=== PATIENT | female | born 1945 | race Caucasian/White ===

== ENCOUNTER → 2018-01-29 08:37 | Outpatient (CLI) | payer OTHER, SELFPAY ==
[2018-01-29 10:42] LABS: Hemoglobin A1C% w Est Avg Glu 8.5 % (4.0-6.0)
[2018-01-29 11:03] LABS: Aspartate Aminotransferase 27 IU/L (14-36); BUN Creatinine Ratio 21.4 (6-22); Blood Urea Nitrogen 15 mg/dL (7-17); Carbon Dioxide 32 mmol/L (22-32); Chloride 97 mmol/L (98-107); Cholesterol 174 mg/dL (140-199); Estimated Glomerular Filt Rate > 60.0 mL/min (>60); Glucose 170 mg/dL (80-110); HDL Cholesterol 62 mg/dL (40-60); HEMOLYSIS < 15 (0-50); LDL Cholesterol Calculated 92 mg/dL (<100); Potassium 4.2 mmol/L (3.4-5.1); Sodium 139 mmol/L (137-145); Triglycerides 102 mg/dL (35-150)
[2018-01-29 11:30] LABS: Thyroid Stimulating Hormone 6.36 uIU/mL (0.47-4.68)
== END ==
PROVIDERS: Family Provider Internal Medicine; PCP Internal Medicine; Visit Provider Internal Medicine
DX: E11.9 Type 2 diabetes mellitus without complications (principal); E03.9 Hypothyroidism, unspecified; E78.00 Pure hypercholesterolemia, unspecified; I10 Essential (primary) hypertension
CPT/HCPCS: 36415; 80048; 80061; 83036; 84443; 84450

== ENCOUNTER → 2018-05-18 08:25 | Outpatient (CLI) | payer OTHER, SELFPAY ==
--- NOTE | 2018-05-18 08:27 | DI.MG.S_ITS ---
BILATERAL DIGITAL SCREENING MAMMOGRAM 3D/2D WITH CAD: 05/18/2018 CLINICAL: Routine screening. Family history of breast cancer. Comparison is made to exams dated: 05/08/2017 mammogram, 04/21/2016 mammogram, and 04/20/2015 mammogram - [facility]. There are scattered fibroglandular elements in both breasts. Current study was also evaluated with a Computer Aided Detection (CAD) system. No significant masses, calcifications, or other findings are seen in either breast. There has been no significant interval change. IMPRESSION: NEGATIVE There is no mammographic evidence of malignancy. A 1 year screening mammogram is recommended. This exam was interpreted at Station ID: [id number]. NOTE: For mammograms, a report in lay terms will be sent to the patient. Approximately 15% of breast malignancies will not be visualized mammographically. In the management of a palpable breast mass, a negative mammogram must not discourage biopsy of a clinically suspicious lesion. Electronically Signed By: Krishan chou/ton:05/20/2018 08:57:21 letter sent: Normal Exam ACR BI-RADS Category 1: Negative [id number]
== END ==
PROVIDERS: Family Provider Internal Medicine; PCP Internal Medicine; Visit Provider Internal Medicine
DX: Z12.31 Encounter for screening mammogram for malignant neoplasm of breast (principal); Z80.3 Family history of malignant neoplasm of breast
CPT/HCPCS: 77063; 77067

== ENCOUNTER 2018-10-30 07:18 | Day surgery (SDC) | payer OTHER, SELFPAY ==
[2018-10-30] VITALS (9 sets, daily range): BP systolic 95–145; BP diastolic 64–83; PULSE 69–85; RESP 12–20; TEMP 36–36.5; O2SAT 91–98; BMI 26.1
--- NOTE | 2018-10-30 | PATH_ITS ---
[facility] Accession Number: [id number] . 01 Material submitted: . esophagus - ESOPHAGUS BIOPSY . 02 Diagnosis: Esophagus, Biopsy: Ulcerated squamous mucosa. A PAS stain is negative for fungal organisms. Intraepithelial eosinophils are not increased. Negative for dysplasia and malignancy. V/11/01/2018 . 02 Electronically signed: . Tori Thompson MD, Pathologist NPI- [id number] . 01 Gross description: . ESOPHAGUS BIOPSY: Received in formalin is 1 fragment(s) of easley, soft tissue measuring 0.2 x 0.2 x 0.2 cm which is entirely submitted and submitted entirely in 1 cassette(s) /DMC /DMC . 02 Microscopic: . A PAS stain was performed to evaluate for fungal organisms and is negative. The control stain showed appropriate reactivity. . 02 Pathologist provided ICD-10: K20.9 . 02 CPT . 280002, [id number] Performed at: 01 [facility] [address] [facility], [place], [place] [id number] MD Krishan Sow MD Phone: [phone] Performed at: 02 [facility] [address] [place], [place] [id number] MD Tori Thompson MD Phone: [phone]
[2018-10-30] MEDS: fentaNYL 250 MCG/5 ML INJ IV (08:51)
[2018-10-30] MEDS: MIDAZOLAM 5 MG/5 ML VIAL IV (08:52)
--- NOTE | 2018-10-30 10:12 | PM.HP.1 ---
History of Present Illness Date Patient Seen: 10/30/18 Time Patient Seen: 08:29 Chief complaint: [id number] Narrative: Recurrent dysphagia Patient History Medical History (Updated 10/30/18 @ 10:13 by Moisés Trimble MD) Diabetes (Acute) GERD (gastroesophageal reflux disease) (Acute) Hyperlipidemia (Acute) Hypertension (Acute) Osteoarthritis (Acute) Retinal vein occlusion (Acute) Stroke (Acute) Thyroid disease (Acute) Social History household members: spouse Family & Social History Social History: household members spouse Meds Home Medications Medication Instructions Recorded Confirmed Type allopurinol #0 02/02/17 History atorvastatin #0 02/02/17 History glimepiride [Amaryl] #0 02/02/17 History calcium polycarbophil [FiberCon] 1 tab PO QDAYP PRN #0 09/26/17 History Allergies Allergy/AdvReac Type Severity Reaction Status Date / Time No Known Drug Allergies Allergy Verified 10/30/18 07:38 Exam Vital Signs (past 8 hours): - 10/30/18 07:39 10/30/18 09:00 10/30/18 09:05 Temperature 96.8 F L 97.7 F Pulse Rate 72 77 71 Respiratory Rate 15 15 12 Blood Pressure 145/83 H 116/70 108/65 Pulse Oximetry 98 91 95 10/30/18 09:13 10/30/18 09:15 10/30/18 09:19 Temperature 97.2 F L Pulse Rate 69 85 76 Respiratory Rate 12 20 14 Blood Pressure 107/64 95/65 Pulse Oximetry 95 95 94 10/30/18 09:24 10/30/18 09:29 10/30/18 09:35 Temperature 97.3 F L 97.5 F L 97.4 F L Pulse Rate 77 81 72 Respiratory Rate 15 16 16 Blood Pressure 113/75 129/77 134/71 Pulse Oximetry 95 95 96 Oxygen Delivery Method Room Air Oxygen Flow Rate 2 Narrative Exam Narrative: Oropharynx free of lesions Chest clear to auscultation percussion Cardiac exam reveals no S3 or murmur Assessment & Plan Assessment & Plan narrative: Assessment: Recurrent dysphagia with last dilation 2 years ago. Known significant esophagitis in the past now off pantoprazole Plan is to repeat upper endoscopy and probable dilation. Risks, benefits, alternatives have been explained.
--- NOTE | 2018-10-30 10:18 | P.OP.ENDO_ITS ---
Operative Date/Time/Diagnoses Date of procedure: 10/30/18 Time of procedure: 10:15 Pre-op diagnosis: See indication and findings Procedure & Clinicians Study performed: EGD and dilation Same procedure as scheduled: Yes Indications: Recurrent dysphagia Surgeon: Moisés Trimble Procedure Notes Procedure in detail: After informed consent was obtained the patient was placed in left lateral decubitus position. The video upper scope was placed into the oropharynx and with the patient's health swallowed into the esophagus. The esophagus stomach and duodenum were carefully examined. On withdrawal, retroflexed view the GE junction was performed. The scope was removed. The patient tolerated the procedure well. Blood loss none Complications none Findings 1. Grade D esophagitis with a nearly circumferential ulceration at the GE junction. There was mild stenosis here. On withdrawal this was dilated to 51 [address] Savary. Biopsies were taken to rule out neoplasia. 2. 3 cm hiatal hernia/paraesophageal hernia 3. Normal stomach 4. Normal duodenum Patient will need to be back on pantoprazole. With her degree of inflammation if she goes off of proton pump inhibitors there is a near 100% chance of recurrence within 1 year. She will return to see me in 1-2 months.
== END 2018-10-30 10:08 | disposition home or self-care (01) ==
PROVIDERS: Family Provider Internal Medicine; PCP Internal Medicine; Visit Provider Internal Medicine Gastroenterology
PROC: 0DJ08ZZ Inspection of Upper Intestinal Tract, Via Natural or Artificial Opening Endoscopic (ICD-10-PCS; CPT 43235; principal; 2018-10-30 08:30)
DX: K20.9 Esophagitis, unspecified (principal); K22.10 Ulcer of esophagus without bleeding; K44.9 Diaphragmatic hernia without obstruction or gangrene; E11.9 Type 2 diabetes mellitus without complications; E78.5 Hyperlipidemia, unspecified; K21.9 Gastro-esophageal reflux disease without esophagitis; I10 Essential (primary) hypertension; Z79.84 Long term (current) use of oral hypoglycemic drugs
CPT/HCPCS: 43248; 43239; J2250; J3010

== ENCOUNTER → 2018-11-21 10:02 | Outpatient (CLI) | payer OTHER, SELFPAY | PROVIDERS: Family Provider Internal Medicine; PCP Internal Medicine; Visit Provider Internal Medicine | DX: M85.851 Other specified disorders of bone density and structure, right thigh (principal); Z78.0 Asymptomatic menopausal state; E07.9 Disorder of thyroid, unspecified; M06.9 Rheumatoid arthritis, unspecified; E11.9 Type 2 diabetes mellitus without complications | CPT/HCPCS: 77080 ==

== ENCOUNTER 2019-04-09 07:29 | Day surgery (SDC) | payer OTHER, SELFPAY ==
[2019-04-09] VITALS (8 sets, daily range): BP systolic 102–128; BP diastolic 63–77; PULSE 69–80; RESP 11–16; TEMP 36.3–36.7; O2SAT 96–99; BMI 25.7
[2019-04-09] MEDS: SODIUM CHLORIDE 0.9% 1,000 ML 100 ML IV (07:53)
--- NOTE | 2019-04-09 08:29 | PM.HP.1 ---
History of Present Illness History of Present Illness Chief complaint: [id number] Patient History Medical History (Updated 10/30/18 @ 10:13 by Moisés Trimble MD) Diabetes (Acute) GERD (gastroesophageal reflux disease) (Acute) Hyperlipidemia (Acute) Hypertension (Acute) Osteoarthritis (Acute) Retinal vein occlusion (Acute) Stroke (Acute) Thyroid disease (Acute) Family & Social History Social History: household members spouse Meds Home Medications and Allergies Home Medications Medication Instructions Recorded Confirmed Type allopurinol #0 02/02/17 History atorvastatin #0 02/02/17 History glimepiride [Amaryl] #0 02/02/17 History calcium polycarbophil [FiberCon] 1 tab PO QDAYP PRN #0 09/26/17 History Allergies Allergy/AdvReac Type Severity Reaction Status Date / Time No Known Drug Allergies Allergy Verified 10/30/18 07:38 Exam Vital Signs (past 8 hours): - 04/09/19 07:43 Temperature 97.8 F Pulse Rate 80 Respiratory Rate 16 Blood Pressure 128/75 Pulse Oximetry 97 Oxygen Delivery Method Room Air Narrative Exam Narrative: Oropharynx free of lesions Chest clear to auscultation percussion Cardiac exam reveals no Assessment & Plan Assessment & Plan narrative: History of severe esophagitis with stricture that has been dilated. Dysphagia has resolved but now checking to ensure complete healing. Risks, benefits, alternatives have been explained.
--- NOTE | 2019-04-09 08:30 | PM.OP.ENDO ---
Operative Date/Time/Diagnoses Date of procedure: 04/09/19 Time of procedure: 08:31 Pre-op diagnosis: See indication and findings Procedure & Clinicians Indications: Severe esophagitis Surgeon: Moisés Trimble Procedure Notes Procedure in detail: After informed consent was obtained the patient was placed in left lateral decubitus position. The video upper scope was placed into the oropharynx with the patient's health swallowed into the esophagus. The esophagus, stomach, duodenum were carefully examined. On withdrawal, retroflexed view the GE junction was performed. The scope was removed. The patient tolerated the procedure well. Blood loss none Complications none Sedation Total sedation time 3 minutes Versed 3 mg fentanyl 100 micro g IV titration the Findings 1. Completely normal esophagus to 33 cm. No evidence of esophagitis. 2. 4-5 cm hiatal/paraesophageal hernia without evidence of [place] lesions 3. Normal distal stomach 4. Normal duodenal bulb and sweep Patient had gone off Zantac because of inability to get it through pharmacies. She eventually substituted famotidine 40 mg q.h.s. along with her pantoprazole 40 mg q.a.m.. We will discuss tapering medication and/or discussions about anti-reflux surgery.
[2019-04-09] MEDS: fentaNYL 250 MCG/5 ML INJ IV (08:41)
[2019-04-09] MEDS: MIDAZOLAM 5 MG/5 ML VIAL IV (08:41)
== END 2019-04-09 09:50 | disposition home or self-care (01) ==
PROVIDERS: Family Provider Internal Medicine; PCP Internal Medicine; Visit Provider Internal Medicine Gastroenterology
PROC: 0DJ08ZZ Inspection of Upper Intestinal Tract, Via Natural or Artificial Opening Endoscopic (ICD-10-PCS; CPT 43235; principal; 2019-04-09 08:30)
DX: K44.9 Diaphragmatic hernia without obstruction or gangrene (principal); K21.9 Gastro-esophageal reflux disease without esophagitis; E11.9 Type 2 diabetes mellitus without complications; Z79.84 Long term (current) use of oral hypoglycemic drugs; I10 Essential (primary) hypertension; E78.5 Hyperlipidemia, unspecified; Z86.73 Personal history of transient ischemic attack (TIA), and cerebral infarction without residual deficits
CPT/HCPCS: 43235; J2250; J3010

== ENCOUNTER 2019-06-17 14:30 | Outpatient (RCR) | payer OTHER, SELFPAY ==
--- NOTE | 2019-04-17 09:32 | PT.OIE ---
Current Diagnoses Unspecified urinary incontinence (04/15/19) Past Medical History (Last Updated 10/30/18 @ 10:13 by Moisés Trimble MD) Diabetes (Acute) GERD (gastroesophageal reflux disease) (Acute) Hyperlipidemia (Acute) Hypertension (Acute) Osteoarthritis (Acute) Retinal vein occlusion (Acute) Stroke (Acute) Thyroid disease (Acute) Visit Care Team Role Provider Type Vahid Harris MD Attending Provider Physician Family Provider Primary Care Provider Specialty: Internal Medicine Address: [address] [place] [address], [facility] Email: [email or web address] Initial Evaluation PT-OP-A Visit Information Start: 04/15/19 09:46 Freq: Status: Active Protocol: Document 04/15/19 09:45 [facility] (Rec: 04/15/19 10:04 [facility] [id number]) Out-Patient Physical Therapy Visit Information Visit Information Visit Type Initial Evaluation Visit Note . Visit Start Time 09:45 Visit Stop Time 10:30 Total Visit Minutes 45 Visit Number 1 Evaluation Information Evaluation Date 04/15/19 PT-OP-B Current Condition Start: 04/15/19 09:46 Freq: Status: Active Protocol: Document 04/15/19 09:45 [facility] (Rec: 04/15/19 10:04 [facility] [id number]) Current Condition History of Current Condition Onset Date chronic Current Complaints urinary urgency/frequency with leakage History of Current Condition Has been on urgency medication for 3 years. She has stopped taking the urgency medication two months ago. Did also get a prescription for estrogen cream x 2 months ago and feels this may be helping some. C/o urgency from sitting to standing. Feels pelvic pressure worse at the end of the day can feel very heavy, also after after exercise with walking or after the pool. Weaning her self off diet coke since January. Other past medical history includes type II diabetes, hx of left eye occlusions, hernia , and memory loss Future Testing and Treatments Planned . Treatment Goals Patient/Caregiver Goals To Decrease complaints of urinary leakage and decrease frequency and urgency Current Functional Impairments (Reported) Functional Limitations- Other limited with activity due to frequency of urination, wakes up at night to void , leaks with movement from sit-stand, PT-OP-I Pelvic Floor Start: 04/15/19 09:46 Freq: Status: Active Protocol: Document 04/15/19 09:45 [facility] (Rec: 04/16/19 14:21 [facility] [id number]) Pelvic Floor Assessment Urine Pelvic Floor Surgery No Urinary Symptoms Urge Sensation,Incomplete Emptying,Falling Out Feeling/ Heavy Other Urinary Symptoms frequency and urgency Leakage Size Large Leakage Cause Urge Other Leakage Causes . Leaks Per Day 2 per month Voiding Frequency 7-10 xms per day Nocturia 1-2 xms Pads Used In 24 Hours 1 Urine Pad Type Panty Liner Pelvic Clock Pelvic Clock 12-3 Atrophy Pelvic Clock 3-6 Atrophy Pelvic Clock 6-9 Atrophy Pelvic Clock 9-12 Atrophy Contraction Ability Voluntary Contraction Weak Voluntary Relaxation Weak Manual Muscle Testing Left 2 Manual Muscle Testing Right 2 Manual Muscle Testing Anterior 2 Manual Muscle Testing Posterior 2 PT-OP-Q Treatments Start: 04/15/19 09:46 Freq: Status: Active Protocol: Document 04/15/19 09:45 [facility] (Rec: 04/16/19 14:21 [facility] [email or web address]) Therapeutic Exercises Supine Exercises 1 Supine Exercise Name ball squeeze with pelvic floor activation Side bilateral Reps/Minutes x 10 reps 5 second hold and 10 second relaxation PT-OP-T Assessment and Plan Start: 04/15/19 09:46 Freq: Status: Active Protocol: Document 04/15/19 09:45 [facility] (Rec: 04/16/19 14:21 [facility] [email or web address]) Physical Therapy Assessment Rehab Potential Rehabilitation Potential Excellent Evaluation Complexity Number of Personal Factors/Comorbidities 0 Number of Body Systems Impaired 1-2 Clinical Presentation at Evaluation Stable Impairments Impairments Activity Tolerance,Functional Activities,Strength,Tone Goals Three Impairment urinary urgency and leakage with strong urge to go Short Term Goal (STG) Maria Eugenia is educated in the urge deference technique and bladder retraining STG Duration 3-4 weeks Plug And Mold Finisher Goal (LTG) Maria Eugenia is able to increase her time between voiding and has decreased c/o urgency and urinary leakage LTG Duration 8 weeks Two Impairment Decreased endurance of the pelvic floor Short Term Goal (STG) Maria Eugenia is able to sustain a pelvic floor contraction for 10 seconds in supine STG Duration 4 weeks Usp Goal (LTG) Maria Eugenia is able to sustain a pelvic floor contraction for 10 seconds in standing LTG Duration 8 weeks One Impairment pelvic floor weakness Plug And Mold Finisher Goal (LTG) Maria Eugenia demonstrates improved strength of her pelvic floor and is able to raise her strength by one muscle grade to 3/5 MMT or better LTG Duration 8 weeks Progress Towards Goals Progress Comments . Assessment Summary Assessment Maria Eugenia presents to physical therapy today with symptoms of urinary urgency and leakage. She notes that she does not experience leaking with coughing or sneezing but with strong urge. She reports that sometimes her urge will present itself after she has been sitting for a period of time and then she goes to stand. The urge will come on quickly with standing and then she will leak. With examination she is weak in all parts of the levator and she has difficulty sustaining a pelvic floor contraction for longer than a few second hold time. She will benefit from pelvic floor strengthening for endurance and strength, a urge deference and bladder retraining program, and from reviewing irritants to the bladder that can cause bladder spasms and urgency. Physical Therapy Plan Frequency and Duration Frequency of Treatment 1x/Week Duration of Treatment 8 Plan of Care Start Date 04/15/19 Plan of Care End Date 06/10/19 Therapeutic Interventions Therapeutic Interventions Home Exercise Program, Neuromuscular Re-education, Patient/Caregiver Education, Self-Care/Home Management,Soft Tissue Mobilization, Therapeutic Exercises Modalities Biofeedback,Electric Stimulation Next Visit Focus/Plan Next Note Type Treatment Note Next Visit Plan Begin with EMG biofeedback next visit for neuro re- education of the pelvic floor
--- NOTE | 2019-04-22 15:54 | PT.OTN ---
Current Diagnoses Unspecified urinary incontinence (04/22/19) Physical Therapy Treatment Note PT-OP-A Visit Information Start: 04/15/19 09:46 Freq: Status: Active Protocol: Document 04/22/19 15:44 [facility] (Rec: 04/22/19 15:54 [facility] [id number]) Out-Patient Physical Therapy Visit Information Visit Information Visit Type Treatment Note Visit Start Time 14:30 Visit Stop Time 15:15 Total Visit Minutes 45 Visit Number 2 PT-OP-B Current Condition Start: 04/15/19 09:46 Freq: Status: Active Protocol: Document 04/15/19 09:45 [facility] (Rec: 04/15/19 10:04 [facility] [id number]) Current Condition History of Current Condition Onset Date chronic Current Complaints urinary urgency/frequency with leakage History of Current Condition Has been on urgency medication for 3 years. She has stopped taking the urgency medication two months ago. Did also get a prescription for estrogen cream x 2 months ago and feels this may be helping some. C/o urgency from sitting to standing. Feels pelvic pressure worse at the end of the day can feel very heavy, also after after exercise with walking or after the pool. Weaning her self off diet coke since January. Other past medical history includes type II diabetes, hx of left eye occlusions, hernia , and memory loss Future Testing and Treatments Planned . Treatment Goals Patient/Caregiver Goals To Decrease complaints of urinary leakage and decrease frequency and urgency Current Functional Impairments (Reported) Functional Limitations- Other limited with activity due to frequency of urinartion, wakes up at night to void , leaks with movement from sit-stand, PT-OP-C Subjective Start: 04/15/19 09:46 Freq: Status: Active Protocol: Document 04/22/19 15:44 [facility] (Rec: 04/22/19 15:54 [facility] [id number]) OP-PT Subjective Patient Comments Patient Comments pt reports she has been trying her exercises at home and finds it easier to do them in her recliner or standing PT-OP-I Pelvic Floor Start: 04/15/19 09:46 Freq: Status: Active Protocol: Document 04/15/19 09:45 [facility] (Rec: 04/16/19 14:21 [facility] [email or web address]) Pelvic Floor Assessment Urine Pelvic Floor Surgery No Urinary Symptoms Urge Sensation,Incomplete Emptying,Falling Out Feeling/ Heavy Other Urinary Symptoms frequency and urgency Leakage Size Large Leakage Cause Urge Other Leakage Causes . Leaks Per Day 2 per month Voiding Frequency 7-10 xms per day Nocturia 1-2 xms Pads Used In 24 Hours 1 Urine Pad Type Panty Liner Pelvic Clock Pelvic Clock 12-3 Atrophy Pelvic Clock 3-6 Atrophy Pelvic Clock 6-9 Atrophy Pelvic Clock 9-12 Atrophy Contraction Ability Voluntary Contraction Weak Voluntary Relaxation Weak Manual Muscle Testing Left 2 Manual Muscle Testing Right 2 Manual Muscle Testing Anterior 2 Manual Muscle Testing Posterior 2 PT-OP-Q Treatments Start: 04/15/19 09:46 Freq: Status: Active Protocol: Document 04/22/19 15:44 [facility] (Rec: 04/22/19 15:54 [facility] [email or web address]) Therapeutic Exercises Supine Exercises 2 Supine Exercise Name foam roll stretch 1 Supine Exercise Name ball squeeze with pelvic floor activation . Side bilateral Reps/Minutes x 10 reps 5 second hold and 10 second relaxation Neuro Re-Education Treatment Other Activities 1 Details EMG biofeedback with pelvic floor isolation Comments resting tone evaluation, endurance evaluation, long holds x 10 seconds and relax x 10 seconds, quick contractions Self-Care/Home Management Treatment Education Patient Education Home Exercise Program Other Education bladder retraining and urge deference technique PT-OP-T Assessment and Plan Start: 04/15/19 09:46 Freq: Status: Active Protocol: Document 04/22/19 15:44 [facility] (Rec: 04/22/19 15:54 [facility] [id number]) Physical Therapy Assessment Assessment Summary Assessment endurance is difficulty for Maria Eugenia to sustain, she will continue to work on the 5 second hold times with 10 second relaxation. Added in urge deference technique today as well as quick contractions . Foam roll for posture which she tolerated well. Physical Therapy Plan Frequency and Duration Frequency of Treatment 1x/Week Duration of Treatment 8 Plan of Care Start Date 04/15/19 Plan of Care End Date 06/10/19 Next Visit Focus/Plan Next Note Type Treatment Note Next Visit Plan EMG biofeedback, work on diaphragmatic breathing, progress to lateral hip rotation
--- NOTE | 2019-04-29 15:00 | PT.OTN ---
Current Diagnoses Unspecified urinary incontinence (04/29/19) Physical Therapy Treatment Note PT-OP-A Visit Information Start: 04/15/19 09:46 Freq: Status: Active Protocol: Document 04/29/19 14:31 [facility] (Rec: 04/29/19 14:39 [facility] [id number]) Out-Patient Physical Therapy Visit Information Visit Information Visit Type Treatment Note Visit Start Time 14:30 Visit Stop Time 15:15 Total Visit Minutes 45 Visit Number 3 PT-OP-B Current Condition Start: 04/15/19 09:46 Freq: Status: Active Protocol: Document 04/15/19 09:45 [facility] (Rec: 04/15/19 10:04 [facility] [id number]) Current Condition History of Current Condition Onset Date chronic Current Complaints urinary urgency/frequency with leakage History of Current Condition Has been on urgency medication for 3 years. She has stopped taking the urgency medication two months ago. Did also get a prescription for estrogen cream x 2 months ago and feels this may be helping some. C/o urgency from sitting to standing. Feels pelvic pressure worse at the end of the day can feel very heavy, also after after exercise with walking or after the pool. Weaning her self off diet coke since January. Other past medical history includes type II diabetes, hx of left eye occlusions, hernia , and memory loss Future Testing and Treatments Planned . Treatment Goals Patient/Caregiver Goals To Decrease complaints of urinary leakage and decrease frequency and urgency Current Functional Impairments (Reported) Functional Limitations- Other limited with activity due to frequency of urinartion, wakes up at night to void , leaks with movement from sit-stand, PT-OP-C Subjective Start: 04/15/19 09:46 Freq: Status: Active Protocol: Document 04/29/19 14:31 [facility] (Rec: 04/29/19 14:39 [facility] [id number]) OP-PT Subjective Patient Comments Patient Comments pt got a foam roll for home, has been doing the urge deference technique and feel like it really works. One time she had a little drop of leaking and that was it. PT-OP-I Pelvic Floor Start: 04/15/19 09:46 Freq: Status: Active Protocol: Document 04/15/19 09:45 [facility] (Rec: 04/16/19 14:21 [facility] [email or web address]) Pelvic Floor Assessment Urine Pelvic Floor Surgery No Urinary Symptoms Urge Sensation,Incomplete Emptying,Falling Out Feeling/ Heavy Other Urinary Symptoms frequency and urgency Leakage Size Large Leakage Cause Urge Other Leakage Causes . Leaks Per Day 2 per month Voiding Frequency 7-10 xms per day Nocturia 1-2 xms Pads Used In 24 Hours 1 Urine Pad Type Panty Liner Pelvic Clock Pelvic Clock 12-3 Atrophy Pelvic Clock 3-6 Atrophy Pelvic Clock 6-9 Atrophy Pelvic Clock 9-12 Atrophy Contraction Ability Voluntary Contraction Weak Voluntary Relaxation Weak Manual Muscle Testing Left 2 Manual Muscle Testing Right 2 Manual Muscle Testing Anterior 2 Manual Muscle Testing Posterior 2 PT-OP-Q Treatments Start: 04/15/19 09:46 Freq: Status: Active Protocol: Document 04/29/19 14:30 [facility] (Rec: 04/30/19 11:12 [facility] [email or web address]) Therapeutic Exercises Supine Exercises 4 Supine Exercise Name diaphragmatic breathing 3 Supine Exercise Name roll outs with theraband 2 Supine Exercise Name foam roll stretch 1 Supine Exercise Name ball squeeze with pelvic floor activation . Side bilateral Reps/Minutes x 10 reps 5 second hold and 10 second relaxation Neuro Re-Education Treatment Other Activities 1 Details EMG biofeedback with pelvic floor isolation Comments resting tone down to baseline endurance evaluation, long holds x 10 seconds and relax x 10 seconds, quick contractions, templates for eccentric control and coordination PT-OP-T Assessment and Plan Start: 04/15/19 09:46 Freq: Status: Active Protocol: Document 04/29/19 14:30 [facility] (Rec: 04/30/19 11:12 [facility] [email or web address]) Physical Therapy Assessment Assessment Summary Assessment pt had some difficulty with dizzyness and nausea today. This started with foam roll. I positioned her head out of extension as this was her go to position and this helped. She has had a history of positional vertigo in the past Average resting tone is 11.0 uv and max of 29 uv today Physical Therapy Plan Next Visit Focus/Plan Next Note Type Treatment Note Next Visit Plan continue to progress pelvic floor strength and resting tone, reassess pts dizzyness symptoms next visit
--- NOTE | 2019-05-06 18:22 | PT.OTN ---
Current Diagnoses Unspecified urinary incontinence (05/06/19) Physical Therapy Treatment Note PT-OP-A Visit Information Start: 04/15/19 09:46 Freq: Status: Active Protocol: Document 05/06/19 18:17 [facility] (Rec: 05/06/19 18:21 [facility] [id number]) Out-Patient Physical Therapy Visit Information Visit Information Visit Type Treatment Note Visit Start Time 14:30 Visit Stop Time 15:15 Total Visit Minutes 45 Visit Number 4 PT-OP-B Current Condition Start: 04/15/19 09:46 Freq: Status: Active Protocol: Document 04/15/19 09:45 [facility] (Rec: 04/15/19 10:04 [facility] [id number]) Current Condition History of Current Condition Onset Date chronic Current Complaints urinary urgency/frequency with leakage History of Current Condition Has been on urgency medication for 3 years. She has stopped taking the urgency medication two months ago. Did also get a prescription for estrogen cream x 2 months ago and feels this may be helping some. C/o urgency from sitting to standing. Feels pelvic pressure worse at the end of the day can feel very heavy, also after after exercise with walking or after the pool. Weaning her self off diet coke since January. Other past medical history includes type II diabetes, hx of left eye occlusions, hernia , and memory loss Future Testing and Treatments Planned . Treatment Goals Patient/Caregiver Goals To Decrease complaints of urinary leakage and decrease frequency and urgency Current Functional Impairments (Reported) Functional Limitations- Other limited with activity due to frequency of urinartion, wakes up at night to void , leaks with movement from sit-stand, PT-OP-C Subjective Start: 04/15/19 09:46 Freq: Status: Active Protocol: Document 05/06/19 18:17 [facility] (Rec: 05/06/19 18:21 [facility] [id number]) OP-PT Subjective Patient Comments Patient Comments pt reports the urge deference technique is helping. She has not used the foam roll as she has been continuing to experience vertigo symptoms PT-OP-I Pelvic Floor Start: 04/15/19 09:46 Freq: Status: Active Protocol: Document 04/15/19 09:45 [facility] (Rec: 04/16/19 14:21 [facility] [id number]) Pelvic Floor Assessment Urine Pelvic Floor Surgery No Urinary Symptoms Urge Sensation,Incomplete Emptying,Falling Out Feeling/ Heavy Other Urinary Symptoms frequency and urgency Leakage Size Large Leakage Cause Urge Other Leakage Causes . Leaks Per Day 2 per month Voiding Frequency 7-10 xms per day Nocturia 1-2 xms Pads Used In 24 Hours 1 Urine Pad Type Panty Liner Pelvic Clock Pelvic Clock 12-3 Atrophy Pelvic Clock 3-6 Atrophy Pelvic Clock 6-9 Atrophy Pelvic Clock 9-12 Atrophy Contraction Ability Voluntary Contraction Weak Voluntary Relaxation Weak Manual Muscle Testing Left 2 Manual Muscle Testing Right 2 Manual Muscle Testing Anterior 2 Manual Muscle Testing Posterior 2 PT-OP-Q Treatments Start: 04/15/19 09:46 Freq: Status: Active Protocol: Document 05/06/19 18:17 [facility] (Rec: 05/06/19 18:21 [facility] [email or web address]) Therapeutic Exercises Supine Exercises 4 Supine Exercise Name diaphragmatic breathing 3 Supine Exercise Name roll outs with theraband 2 Supine Exercise Name foam roll stretch 1 Supine Exercise Name ball squeeze with pelvic floor activation . Side bilateral Reps/Minutes x 10 reps 5 second hold and 10 second relaxation Other Exercises 1 Other Exercise Name sit-stand with pelvic floor facilitation Reps/Minutes x 10 reps Neuro Re-Education Treatment Other Activities 1 Details EMG biofeedback with pelvic floor isolation Comments resting tone down to baseline endurance evaluation, long holds x 10 seconds and relax x 10 seconds, quick contractions, templates for eccentric control and coordination PT-OP-T Assessment and Plan Start: 04/15/19 09:46 Freq: Status: Active Protocol: Document 05/06/19 18:17 [facility] (Rec: 05/06/19 18:21 [facility] [id number]) Physical Therapy Assessment Assessment Summary Assessment pt did not have as much strength today. She reports getting the flu shot last week and has felt a little off this week. Worked on sit- stand with pelvic floor recruitment Physical Therapy Plan Frequency and Duration Frequency of Treatment 1x/Week Duration of Treatment 8 Plan of Care Start Date 04/15/19 Plan of Care End Date 06/10/19 Therapeutic Interventions Therapeutic Interventions Home Exercise Program, Neuromuscular Re-education, Patient/Caregiver Education, Self-Care/Home Management,Soft Tissue Mobilization, Therapeutic Exercises Modalities Biofeedback,Electric Stimulation Next Visit Focus/Plan Next Note Type Treatment Note Next Visit Plan pt will be gone x 3 weeks out of town. Review all exercises next visit.
--- NOTE | 2019-05-27 14:30 | PT.OTN ---
Current Diagnoses Unspecified urinary incontinence (05/27/19) Physical Therapy Treatment Note PT-OP-A Visit Information Start: 04/15/19 09:46 Freq: Status: Active Protocol: Document 05/27/19 14:30 [facility] (Rec: 05/28/19 09:36 [facility] [id number]) Out-Patient Physical Therapy Visit Information Visit Information Visit Type Re-Evaluation Visit Start Time 14:30 Visit Stop Time 15:15 Total Visit Minutes 45 Visit Number 5 PT-OP-B Current Condition Start: 04/15/19 09:46 Freq: Status: Active Protocol: Document 04/15/19 09:45 [facility] [place] (Rec: 04/15/19 10:04 [facility] [id number]) Current Condition History of Current Condition Onset Date chronic Current Complaints urinary urgency/frequency with leakage History of Current Condition Has been on urgency medication for 3 years. She has stopped taking the urgency medication two months ago. Did also get a prescription for estrogen cream x 2 months ago and feels this may be helping some. C/o urgency from sitting to standing. Feels pelvic pressure worse at the end of the day can feel very heavy, also after after exercise with walking or after the pool. Weaning her self off diet coke since January. Other past medical history includes type II diabetes, hx of left eye occlusions, hernia , and memory loss Future Testing and Treatments Planned . Treatment Goals Patient/Caregiver Goals To Decrease complaints of urinary leakage and decrease frequency and urgency Current Functional Impairments (Reported) Functional Limitations- Other limited with activity due to frequency of urinartion, wakes up at night to void , leaks with movement from sit-stand, PT-OP-C Subjective Start: 04/15/19 09:46 Freq: Status: Active Protocol: Document 05/27/19 14:30 [facility] [place] (Rec: 05/28/19 09:36 [facility] [place] [id number]) OP-PT Subjective Patient Comments Patient Comments pt reports she did well on vacation with decreased symptoms. She is still experiencing the vertigo so she will get a PT referral for this. She also notes it is difficult to do the sit-stand due to knee pain. PT-OP-I Pelvic Floor Start: 04/15/19 09:46 Freq: Status: Active Protocol: Document 04/15/19 09:45 [facility] (Rec: 04/16/19 14:21 [facility] [place] [id number]) Pelvic Floor Assessment Urine Pelvic Floor Surgery No Urinary Symptoms Urge Sensation,Incomplete Emptying,Falling Out Feeling/ Heavy Other Urinary Symptoms frequency and urgency Leakage Size Large Leakage Cause Urge Other Leakage Causes . Leaks Per Day 2 per month Voiding Frequency 7-10 xms per day Nocturia 1-2 xms Pads Used In 24 Hours 1 Urine Pad Type Panty Liner Pelvic Clock Pelvic Clock 12-3 Atrophy Pelvic Clock 3-6 Atrophy Pelvic Clock 6-9 Atrophy Pelvic Clock 9-12 Atrophy Contraction Ability Voluntary Contraction Weak Voluntary Relaxation Weak Manual Muscle Testing Left 2 Manual Muscle Testing Right 2 Manual Muscle Testing Anterior 2 Manual Muscle Testing Posterior 2 PT-OP-Q Treatments Start: 04/15/19 09:46 Freq: Status: Active Protocol: Document 05/27/19 14:30 [facility] [place] (Rec: 05/28/19 09:36 [facility] [place] [id number]) Therapeutic Exercises Supine Exercises 4 Supine Exercise Name diaphragmatic breathing 3 Supine Exercise Name roll outs with theraband 2 Supine Exercise Name foam roll stretch Comments with pillows under her head for vertigo 1 Supine Exercise Name ball squeeze with pelvic floor activation . Side bilateral Reps/Minutes x 10 reps 5 second hold and 10 second relaxation Sidelying Exercises 1 Sidelying Exercise Name sidelying clam shell with theraband Reps/Minutes 2 x 10 reps Other Exercises 1 Other Exercise Name standing mini squats from the counter Reps/Minutes x 10 Comments cues to sit hip back to avoid knee pain Neuro Re-Education Treatment Other Activities 1 Details EMG biofeedback with pelvic floor isolation Comments resting tone down to baseline endurance evaluation, long holds x 10 seconds and relax x 10 seconds, quick contractions, templates for eccentric control and coordination PT-OP-T Assessment and Plan Start: 04/15/19 09:46 Freq: Status: Active Protocol: Document 05/27/19 14:30 [facility] (Rec: 05/28/19 09:36 [facility] [place] [id number]) Physical Therapy Assessment Assessment Summary Assessment able to increase to sidelying clam shells today for the lateral hip. Maria Eugenia also tolerated standing mini squats much better. Continue to work on pelvic floor progression Physical Therapy Plan Frequency and Duration Frequency of Treatment 1x/Week Duration of Treatment 8 Plan of Care Start Date 04/15/19 Plan of Care End Date 06/10/19 Next Visit Focus/Plan Next Note Type Treatment Note Next Visit Plan begin with foam roll stretch, add cat cow and TA facilitation in quadruped
--- NOTE | 2019-06-03 16:47 | PT.OTN ---
Current Diagnoses Unspecified urinary incontinence (06/03/19) Physical Therapy Treatment Note PT-OP-A Visit Information Start: 04/15/19 09:46 Freq: Status: Active Protocol: Document 06/03/19 16:40 [facility] (Rec: 06/03/19 16:46 [facility] [id number]) Out-Patient Physical Therapy Visit Information Visit Information Visit Type Treatment Note Visit Start Time 14:30 Visit Stop Time 15:15 Total Visit Minutes 45 Visit Number 6 PT-OP-B Current Condition Start: 04/15/19 09:46 Freq: Status: Active Protocol: Document 04/15/19 09:45 [facility] (Rec: 04/15/19 10:04 [facility] [id number]) Current Condition History of Current Condition Onset Date chronic Current Complaints urinary urgency/frequency with leakage History of Current Condition Has been on urgency medication for 3 years. She has stopped taking the urgency medication two months ago. Did also get a prescription for estrogen cream x 2 months ago and feels this may be helping some. C/o urgency from sitting to standing. Feels pelvic pressure worse at the end of the day can feel very heavy, also after after exercise with walking or after the pool. Weaning her self off diet coke since January. Other past medical history includes type II diabetes, hx of left eye occlusions, hernia , and memory loss Future Testing and Treatments Planned . Treatment Goals Patient/Caregiver Goals To Decrease complaints of urinary leakage and decrease frequency and urgency Current Functional Impairments (Reported) Functional Limitations- Other limited with activity due to frequency of urinartion, wakes up at night to void , leaks with movement from sit-stand, PT-OP-C Subjective Start: 04/15/19 09:46 Freq: Status: Active Protocol: Document 06/03/19 14:43 [facility] (Rec: 06/03/19 14:53 [facility] [id number]) OP-PT Subjective Patient Comments Patient Comments Doing well with her bladder, tried to stop mid stream and did pretty well . PT-OP-I Pelvic Floor Start: 04/15/19 09:46 Freq: Status: Active Protocol: Document 04/15/19 09:45 [facility] (Rec: 04/16/19 14:21 [facility] [email or web address]) Pelvic Floor Assessment Urine Pelvic Floor Surgery No Urinary Symptoms Urge Sensation,Incomplete Emptying,Falling Out Feeling/ Heavy Other Urinary Symptoms frequency and urgency Leakage Size Large Leakage Cause Urge Other Leakage Causes . Leaks Per Day 2 per month Voiding Frequency 7-10 xms per day Nocturia 1-2 xms Pads Used In 24 Hours 1 Urine Pad Type Panty Liner Pelvic Clock Pelvic Clock 12-3 Atrophy Pelvic Clock 3-6 Atrophy Pelvic Clock 6-9 Atrophy Pelvic Clock 9-12 Atrophy Contraction Ability Voluntary Contraction Weak Voluntary Relaxation Weak Manual Muscle Testing Left 2 Manual Muscle Testing Right 2 Manual Muscle Testing Anterior 2 Manual Muscle Testing Posterior 2 PT-OP-Q Treatments Start: 04/15/19 09:46 Freq: Status: Active Protocol: Document 06/03/19 16:40 [facility] (Rec: 06/03/19 16:46 [facility] [email or web address]) Therapeutic Exercises Supine Exercises 1 Supine Exercise Name ball squeeze with pelvic floor activation . Side bilateral Reps/Minutes x 10 reps 5 second hold and 10 second relaxation Sidelying Exercises 2 Sidelying Exercise Name sidelying adductor leg lefts Reps/Minutes x 10 1 Sidelying Exercise Name sidelying clam shell with theraband Reps/Minutes 2 x 10 reps Standing Exercises 1 Standing Exercise Name standing pelvic floor contractions Comments practicing leaning over the plinth and also standing against the wall Other Exercises 1 Other Exercise Name standing mini squats from the counter Reps/Minutes x 10 Comments cues to sit hip back to avoid knee pain Neuro Re-Education Treatment Other Activities 2 Details quick contractions Reps/Duration x 10 reps 1 Details EMG biofeedback with pelvic floor isolation Comments resting tone down to baseline endurance evaluation, long holds x 10 seconds and relax x 10 seconds, templates for eccentric control and coordination. Patient given HEP of elevator floors for her pelvic floor PT-OP-T Assessment and Plan Start: 04/15/19 09:46 Freq: Status: Active Protocol: Document 06/03/19 16:40 [facility] (Rec: 06/03/19 16:46 [facility] [email or web address]) Physical Therapy Assessment Assessment Summary Assessment Maria Eugenia had improved form with her mini squats today. She has difficulty feeling her pelvic floor with return to stand but is able to feel it standing. Average on EMG biofeeback today is 10.2 uv. Physical Therapy Plan Frequency and Duration Frequency of Treatment 1x/Week Duration of Treatment 8 Plan of Care Start Date 04/15/19 Plan of Care End Date 06/10/19 Therapeutic Interventions Therapeutic Interventions Home Exercise Program, Neuromuscular Re-education, Patient/Caregiver Education, Self-Care/Home Management,Soft Tissue Mobilization, Therapeutic Exercises Modalities Biofeedback,Electric Stimulation Next Visit Focus/Plan Next Note Type Treatment Note Next Visit Plan progress report next visit, cat VICENTA grider facilitation
--- NOTE | 2019-06-17 15:32 | PT.OTN ---
Current Diagnoses Unspecified urinary incontinence (06/17/19) Physical Therapy Treatment Note PT-OP-A Visit Information Start: 04/15/19 09:46 Freq: Status: Active Protocol: Document 06/17/19 15:21 [facility] (Rec: 06/17/19 15:32 [facility] [id number]) Out-Patient Physical Therapy Visit Information Visit Information Visit Type Treatment Note Visit Start Time 14:30 Visit Stop Time 15:15 Total Visit Minutes 45 Visit Number 7 PT-OP-B Current Condition Start: 04/15/19 09:46 Freq: Status: Active Protocol: Document 04/15/19 09:45 [facility] (Rec: 04/15/19 10:04 [facility] [id number]) Current Condition History of Current Condition Onset Date chronic Current Complaints urinary urgency/frequency with leakage History of Current Condition Has been on urgency medication for 3 years. She has stopped taking the urgency medication two months ago. Did also get a prescription for estrogen cream x 2 months ago and feels this may be helping some. C/o urgency from sitting to standing. Feels pelvic pressure worse at the end of the day can feel very heavy, also after after exercise with walking or after the pool. Weaning her self off diet coke since January. Other past medical history includes type II diabetes, hx of left eye occlusions, hernia , and memory loss Future Testing and Treatments Planned . Treatment Goals Patient/Caregiver Goals To Decrease complaints of urinary leakage and decrease frequency and urgency Current Functional Impairments (Reported) Functional Limitations- Other limited with activity due to frequency of urinartion, wakes up at night to void , leaks with movement from sit-stand, PT-OP-C Subjective Start: 04/15/19 09:46 Freq: Status: Active Protocol: Document 06/17/19 14:40 [facility] (Rec: 06/17/19 14:49 [facility] [id number]) OP-PT Subjective Patient Comments Patient Comments Had several symptoms of leakage over the holiday, ran out of estrogen cream. She has gotten off of her caffeine . Not sure of her insurance coverage until next week. Patient Reported Progress Same PT-OP-I Pelvic Floor Start: 04/15/19 09:46 Freq: Status: Active Protocol: Document 04/15/19 09:45 [facility] (Rec: 04/16/19 14:21 [facility] [email or web address]) Pelvic Floor Assessment Urine Pelvic Floor Surgery No Urinary Symptoms Urge Sensation,Incomplete Emptying,Falling Out Feeling/ Heavy Other Urinary Symptoms frequency and urgency Leakage Size Large Leakage Cause Urge Other Leakage Causes . Leaks Per Day 2 per month Voiding Frequency 7-10 xms per day Nocturia 1-2 xms Pads Used In 24 Hours 1 Urine Pad Type Panty Liner Pelvic Clock Pelvic Clock 12-3 Atrophy Pelvic Clock 3-6 Atrophy Pelvic Clock 6-9 Atrophy Pelvic Clock 9-12 Atrophy Contraction Ability Voluntary Contraction Weak Voluntary Relaxation Weak Manual Muscle Testing Left 2 Manual Muscle Testing Right 2 Manual Muscle Testing Anterior 2 Manual Muscle Testing Posterior 2 PT-OP-Q Treatments Start: 04/15/19 09:46 Freq: Status: Active Protocol: Document 06/17/19 15:21 [facility] (Rec: 06/17/19 15:32 [facility] [email or web address]) Therapeutic Exercises Supine Exercises 1 Supine Exercise Name ball squeeze with pelvic floor activation . Side bilateral Reps/Minutes x 10 reps 5 second hold and 10 second relaxation Sidelying Exercises 1 Sidelying Exercise Name sidelying clam shell with theraband Reps/Minutes 2 x 10 reps Other Exercises 1 Other Exercise Name standing mini squats from the counter Reps/Minutes x 10 Comments cues to sit hip back to avoid knee pain Neuro Re-Education Treatment Other Activities 2 Details quick contractions Reps/Duration x 10 reps 1 Details EMG biofeedback with pelvic floor isolation Comments resting tone down to baseline endurance evaluation, long holds x 10 seconds and relax x 10 seconds, templates for eccentric control and coordination. Patient given HEP of elevator floors for her pelvic floor PT-OP-T Assessment and Plan Start: 04/15/19 09:46 Freq: Status: Active Protocol: Document 06/17/19 15:21 [facility] (Rec: 06/17/19 15:32 [facility] [id number]) Physical Therapy Assessment Goals Three Impairment urinary urgency and leakage with strong urge to go Short Term Goal (STG) Maria Eugenia is educated in the urge deference technique and bladder retraining GOAL MET STG Duration 3-4 weeks Usp Goal (LTG) Maria Eugenia is able to increase her time between voiding and has decreased c/o urgency and urinary leakage SOME PROGRESS, last week was a rough week LTG Duration 8 weeks Two Impairment Decreased endurance of the pelvic floor Short Term Goal (STG) Maria Eugenia is able to sustain a pelvic floor contraction for 10 seconds in supine NEEDS MORE WORK STG Duration 4 weeks Usp Goal (LTG) Maria Eugenia is able to sustain a pelvic floor contraction for 10 seconds in standing NEEDS MORE WORK LTG Duration 8 weeks One Impairment pelvic floor weakness Sr[employer] Goal (LTG) Maria Eugenia demonstrates improved strength of her pelvic floor and is able to raise her strength by one muscle grade to 3/5 MMT or better SOME PROGRESS LTG Duration 8 weeks Assessment Summary Assessment pt frustrated with progress this week as she felt urgency over the holiday. She does note that her pelvic pressure is overall decreased. It is hard to fit in all the exercises into her routine. We talked today about making sit -stand a habit to tighten her pelvic floor. That way it is exercising her pelvic floor without additional time. Her endurance is still limited with pelvic floor contractions and she tends to lose the contraction after 5 seconds. Maria Eugenia would benefit from continued PT Physical Therapy Plan Frequency and Duration Frequency of Treatment 1x/Week Duration of Treatment 8 Plan of Care Start Date 06/17/19 Plan of Care End Date 08/12/19 Therapeutic Interventions Therapeutic Interventions Home Exercise Program, Neuromuscular Re-education, Patient/Caregiver Education, Self-Care/Home Management,Soft Tissue Mobilization, Therapeutic Exercises Modalities Biofeedback,Electric Stimulation Next Visit Focus/Plan Next Note Type Treatment Note Next Visit Plan Held off on giving new exercises today as Maria Eugenia felt overwhelmed with what she had. Try to work on standing exercise next visit that she can fit into her routine at home
--- NOTE | 2019-06-17 15:32 | PT.OPPOC ---
Physical, Occupational & Speech Therapy At [facility] Current Diagnoses Unspecified urinary incontinence (06/17/19) Visit Care Team Role Provider Type Vahid Harris MD Attending Provider Physician Family Provider Primary Care Provider Specialty: Internal Medicine Address: [address] [place] [address], [id number] Email: [email or web address] Plan Of Care PT-OP-T Assessment and Plan Start: 04/15/19 09:46 Freq: Status: Active Protocol: Document 06/17/19 15:21 [facility] (Rec: 06/17/19 15:32 [facility] [email or web address]) Physical Therapy Assessment Goals Three Impairment urinary urgency and leakage with strong urge to go Short Term Goal (STG) Maria Eugenia is educated in the urge deference technique and bladder retraining GOAL MET STG Duration 3-4 weeks Correction Goal (LTG) Maria Eugenia is able to increase her time between voiding and has decreased c/o urgency and urinary leakage SOME PROGRESS, last week was a rough week LTG Duration 8 weeks Two Impairment Decreased endurance of the pelvic floor Short Term Goal (STG) Maria Eugenia is able to sustain a pelvic floor contraction for 10 seconds in supine NEEDS MORE WORK STG Duration 4 weeks Cuff Setter Lockstitch Goal (LTG) Maria Eugenia is able to sustain a pelvic floor contraction for 10 seconds in standing NEEDS MORE WORK LTG Duration 8 weeks One Impairment pelvic floor weakness Correction Goal (LTG) Maria Eugenia demonstrates improved strength of her pelvic floor and is able to raise her strength by one muscle grade to 3/5 MMT or better SOME PROGRESS LTG Duration 8 weeks Assessment Summary Assessment pt frustrated with progress this week as she felt urgency over the holiday. She does note that her pelvic pressure is overall decreased. It is hard to fit in all the exercises into her routine. We talked today about making sit -stand a habit to tighten her pelvic floor. That way it is exercising her pelvic floor without additional time. Her endurance is still limited with pelvic floor contractions and she tends to lose the contraction after 5 seconds. Maria Eugenia would benefit from continued PT Physical Therapy Plan Frequency and Duration Frequency of Treatment 1x/Week Duration of Treatment 8 Plan of Care Start Date 06/17/19 Plan of Care End Date 08/12/19 Therapeutic Interventions Therapeutic Interventions Home Exercise Program, Neuromuscular Re-education, Patient/Caregiver Education, Self-Care/Home Management,Soft Tissue Mobilization, Therapeutic Exercises Modalities Biofeedback,Electric Stimulation Next Visit Focus/Plan Next Note Type Treatment Note Next Visit Plan Held off on giving new exercises today as Maria Eugenia felt overwhelmed with what she had. Try to work on standing exercise next visit that she can fit into her routine at home Plan of Care Dates Plan of Care Start Date 06/17/19 Plan of Care End Date 08/12/19 Electronically Signed by: Idalia Blake, PT 06/17/19 1532 Please Sign and Return: I have reviewed this Plan of Care and certify that the skilled therapy services above are required to meet the patient?s needs. Physician Signature Date Printed Name and Credentials Clinical Instructor Signature Printed Name and Credentials
--- NOTE | 2019-12-17 16:22 | PT.OPDS ---
Current Diagnoses Unspecified urinary incontinence (06/17/19) Visit Care Team Role Provider Type Vahid Harris MD Attending Provider Physician Family Provider Primary Care Provider Specialty: Internal Medicine Address: [address] [place] [address], [facility] Email: [email or web address] Visit Number Visit Number 7 Discharge Summary PT-OP-B Current Condition Start: 04/15/19 09:46 Freq: Status: Active Protocol: Document 04/15/19 09:45 [facility] (Rec: 04/15/19 10:04 [facility] [id number]) Current Condition History of Current Condition Onset Date chronic Current Complaints urinary urgency/frequency with leakage History of Current Condition Has been on urgency medication for 3 years. She has stopped taking the urgency medication two months ago. Did also get a prescription for estrogen cream x 2 months ago and feels this may be helping some. C/o urgency from sitting to standing. Feels pelvic pressure worse at the end of the day can feel very heavy, also after after exercise with walking or after the pool. Weaning her self off diet coke since January. Other past medical history includes type II diabetes, hx of left eye occlusions, hernia , and memory loss Future Testing and Treatments Planned . Treatment Goals Patient/Caregiver Goals To Decrease complaints of urinary leakage and decrease frequency and urgency Current Functional Impairments (Reported) Functional Limitations- Other limited with activity due to frequency of urinartion, wakes up at night to void , leaks with movement from sit-stand, PT-OP-C Subjective Start: 04/15/19 09:46 Freq: Status: Active Protocol: Document 06/17/19 14:40 [facility] (Rec: 06/17/19 14:49 [facility] [id number]) OP-PT Subjective Patient Comments Patient Comments Had several symptoms of leakage over the holiday, ran out of estrogen cream. She has gotten off of her caffeine . Not sure of her insurance coverage until next week. Patient Reported Progress Same PT-OP-I Pelvic Floor Start: 04/15/19 09:46 Freq: Status: Active Protocol: Document 04/15/19 09:45 [facility] (Rec: 04/16/19 14:21 [facility] [email or web address]) Pelvic Floor Assessment Urine Pelvic Floor Surgery No Urinary Symptoms Urge Sensation,Incomplete Emptying,Falling Out Feeling/ Heavy Other Urinary Symptoms frequency and urgency Leakage Size Large Leakage Cause Urge Other Leakage Causes . Leaks Per Day 2 per month Voiding Frequency 7-10 xms per day Nocturia 1-2 xms Pads Used In 24 Hours 1 Urine Pad Type Panty Liner Pelvic Clock Pelvic Clock 12-3 Atrophy Pelvic Clock 3-6 Atrophy Pelvic Clock 6-9 Atrophy Pelvic Clock 9-12 Atrophy Contraction Ability Voluntary Contraction Weak Voluntary Relaxation Weak Manual Muscle Testing Left 2 Manual Muscle Testing Right 2 Manual Muscle Testing Anterior 2 Manual Muscle Testing Posterior 2 PT-OP-T Assessment and Plan Start: 04/15/19 09:46 Freq: Status: Active Protocol: Document 12/17/19 16:21 [facility] (Rec: 12/17/19 16:22 [facility] [email or web address]) Physical Therapy Assessment Assessment Summary Assessment Pt has need been since the end of May. She will be discharged from PT at this time Physical Therapy Plan Discharge Physical Therapy Discharge Reasons No Longer Attending PT
== END 2019-12-23 09:04 ==
LOC: PHYS 14:30
PROVIDERS: Family Provider Internal Medicine; PCP Internal Medicine; Visit Provider Internal Medicine
DX: R32 Unspecified urinary incontinence (principal)
CPT/HCPCS: 97110; 97112; 97161; 97535

== ENCOUNTER → 2019-11-17 08:38 | Outpatient (CLI) | payer OTHER, SELFPAY ==
--- NOTE | 2019-11-17 | DI.MG.S_ITS ---
BILATERAL DIGITAL SCREENING MAMMOGRAM 3D/2D WITH CAD: 11/17/2019 CLINICAL: Routine screening. Family history of breast cancer. Comparison is made to exams dated: 05/18/2018 mammogram, 05/08/2017 mammogram, 04/21/2016 mammogram, and 04/20/2015 mammogram - [facility]. There are scattered fibroglandular elements in both breasts. Current study was also evaluated with a Computer Aided Detection (CAD) system. No significant masses, calcifications, or other findings are seen in either breast. There has been no significant interval change. IMPRESSION: NEGATIVE There is no mammographic evidence of malignancy. A 1 year screening mammogram is recommended. This exam was interpreted at Station ID: [id number]. NOTE: For mammograms, a report in lay terms will be sent to the patient. Approximately 15% of breast malignancies will not be visualized mammographically. In the management of a palpable breast mass, a negative mammogram must not discourage biopsy of a clinically suspicious lesion. Electronically Signed By: Kenney lisa/ton:11/17/2019 09:31:59 letter sent: Normal Exam ACR BI-RADS Category 1: Negative 3341F
== END ==
PROVIDERS: Family Provider Internal Medicine; PCP Internal Medicine; Referring Provider Internal Medicine; Visit Provider Internal Medicine
DX: Z12.31 Encounter for screening mammogram for malignant neoplasm of breast (principal); Z80.3 Family history of malignant neoplasm of breast
CPT/HCPCS: 77063; 77067

== ENCOUNTER → 2020-06-02 14:40 | Outpatient (ROUT) | payer OTHER, SELFPAY ==
[2020-06-02 15:03] LABS: Add Manual Diff / Slide Review NO; Basophils Absolute Auto 100 /uL (0-100); Basophils Percent Auto 1.8 % (0-2); Eosinophils Absolute Auto 300 /uL (0-450); Eosinophils Percent Auto 3.7 % (2-4); Hematocrit 36.2 % (36-46); Hemoglobin 11.9 g/dL (12.0-16.0); Lymphocytes Absolute Auto 1800 /uL (1100-4500); Lymphocytes Percent Auto 26.8 % (25-40); Mean Corpuscular HGB Conc 32.9 % (30-36); Mean Corpuscular Hemoglobin 27.8 PG (26-34); Mean Corpuscular Volume 84.5 fL (80-100); Monocytes Absolute Auto 500 /uL (0-900); Monocytes Percent Auto 7.5 % (3-14); Neutrophils Absolute Auto 4100 /uL (1500-7000); Neutrophils Percent Auto 60.2 % (50-75); Platelet Count 270 X10^3/uL (150-400); Red Blood Cell Count 4.28 X10^6/uL (4.0-5.2); Red Cell Distribution Width 14.5 % (11.6-14.8); White Blood Cell Count 6.8 X10^3/uL (4.5-11.0)
[2020-06-02 15:14] LABS: Aspartate Aminotransferase 30 IU/L (14-36); BUN Creatinine Ratio 25.8 (6-22); Blood Urea Nitrogen 17 mg/dL (7-17); Calcium 9.8 mg/dL (8.4-10.2); Carbon Dioxide 33 mmol/L (22-32); Chloride 97 mmol/L (98-107); Cholesterol 184 mg/dL (140-199); Estimated Glomerular Filt Rate > 60.0 mL/min (>60); Glucose 192 mg/dL (80-110); HDL Cholesterol 61 mg/dL (40-60); HEMOLYSIS < 15 (0-50); LDL Cholesterol Calculated 88 mg/dL (<100); Sodium 135 mmol/L (137-145); Triglycerides 174 mg/dL (35-150)
[2020-06-02 15:42] LABS: TSH w/ Reflex to FT4 0.56 uIU/mL (0.47-4.68)
== END ==
PROVIDERS: Family Provider Internal Medicine; PCP Internal Medicine; Visit Provider Internal Medicine
DX: I10 Essential (primary) hypertension (principal); E78.2 Mixed hyperlipidemia; E03.9 Hypothyroidism, unspecified
CPT/HCPCS: 80048; 80061; 84443; 84450; 85025

== ENCOUNTER → 2020-11-23 18:00 | Outpatient (CLI) | payer OTHER, SELFPAY ==
--- NOTE | 2020-11-23 | DI.MG.S_ITS ---
BILATERAL DIGITAL SCREENING MAMMOGRAM 3D/2D WITH CAD: 11/23/2020 CLINICAL: Routine screening. Family history of breast cancer. Comparison is made to exams dated: 11/17/2019 mammogram, 05/18/2018 mammogram, and 05/08/2017 mammogram - [facility]. There are scattered fibroglandular elements in both breasts. Current study was also evaluated with a Computer Aided Detection (CAD) system. There are benign calcifications in both breasts. There also are benign vascular calcifications in both breasts. No significant masses, calcifications, or other findings are seen in either breast. There has been no significant interval change. IMPRESSION: BENIGN There is no mammographic evidence of malignancy. A 1 year screening mammogram is recommended. This exam was interpreted at Station ID: [id number]. NOTE: For mammograms, a report in lay terms will be sent to the patient. Approximately 15% of breast malignancies will not be visualized mammographically. In the management of a palpable breast mass, a negative mammogram must not discourage biopsy of a clinically suspicious lesion. Electronically Signed By: Krishan chou/ton:11/24/2020 07:56:10 letter sent: Normal Exam ACR BI-RADS Category 2: Benign Finding(s) 3342F
== END ==
PROVIDERS: Family Provider Internal Medicine; PCP Internal Medicine; Referring Provider Internal Medicine; Visit Provider Internal Medicine
DX: Z12.31 Encounter for screening mammogram for malignant neoplasm of breast (principal); Z80.3 Family history of malignant neoplasm of breast
CPT/HCPCS: 77063; 77067

== ENCOUNTER → 2021-08-29 09:41 | Outpatient (CLI) | payer OTHER, SELFPAY ==
--- NOTE | 2021-08-29 | DI.RAD.S_ITS ---
PROCEDURE: XR HIP W PEL IF DONE LT 2V INDICATIONS: LEFT HIP PAIN TECHNIQUE: AP pelvis with lateral view(s) of the left hip(s). COMPARISON: None. FINDINGS: Bones: Left worse than right bilateral hip joint osteoarthritis is seen. No evidence of avascular necrosis of femoral head. No fractures or dislocations. Pelvic ring appears intact. No suspicious bony lesions. Soft tissues: The visualized bowel gas pattern is normal. No suspicious soft tissue calcifications. IMPRESSION: Left worse than right bilateral moderate hip joint osteoarthritis. No acute fracture or dislocation. No evidence of avascular necrosis of femoral head. Dictated by: Lux An M.D. on 08/29/2021 at 11:07 Approved by: Lux An M.D. on 08/29/2021 at 11:08
== END ==
PROVIDERS: Family Provider Internal Medicine; PCP Internal Medicine; Referring Provider Internal Medicine; Visit Provider Internal Medicine
DX: M25.552 Pain in left hip (principal); M16.0 Bilateral primary osteoarthritis of hip
CPT/HCPCS: 73502

== ENCOUNTER → 2021-11-28 11:58 | Outpatient (CLI) | payer OTHER, SELFPAY ==
--- NOTE | 2021-11-28 | DI.MG.S_ITS ---
BILATERAL DIGITAL SCREENING MAMMOGRAM 3D/2D WITH CAD: 11/28/2021 CLINICAL: Routine screening. Family history of breast cancer. Comparison is made to exams dated: 11/23/2020 mammogram, 11/17/2019 mammogram, and 05/18/2018 mammogram - [facility]. There are scattered fibroglandular elements in both breasts. Current study was also evaluated with a Computer Aided Detection (CAD) system. There are benign calcifications in both breasts. There also are benign vascular calcifications in both breasts. No significant masses, calcifications, or other findings are seen in either breast. There has been no significant interval change. IMPRESSION: BENIGN There is no mammographic evidence of malignancy. A 1 year screening mammogram is recommended. This exam was interpreted at Station ID: [id number]. NOTE: For mammograms, a report in lay terms will be sent to the patient. Approximately 15% of breast malignancies will not be visualized mammographically. In the management of a palpable breast mass, a negative mammogram must not discourage biopsy of a clinically suspicious lesion. Electronically Signed By: Andrea ponce/ton:11/28/2021 13:01:46 letter sent: Normal Exam ACR BI-RADS Category 2: Benign Finding(s) 3342F
== END ==
PROVIDERS: Family Provider Internal Medicine; PCP Internal Medicine; Referring Provider Internal Medicine; Visit Provider Internal Medicine
DX: Z12.31 Encounter for screening mammogram for malignant neoplasm of breast (principal); Z80.3 Family history of malignant neoplasm of breast
CPT/HCPCS: 77063; 77067

== ENCOUNTER → 2022-09-29 09:58 | Outpatient (CLI) | payer OTHER, SELFPAY ==
[2022-09-29 11:28] LABS: Hemoglobin 11.1 g/dL (12.0-16.0); Mean Corpuscular HGB Conc 33.6 % (30-36); Mean Corpuscular Hemoglobin 27.1 PG (26-34); Mean Corpuscular Volume 80.5 fL (80-100); Platelet Count 256 X10^3/uL (150-400); Red Blood Cell Count 4.11 X10^6/uL (4.0-5.2); Red Cell Distribution Width 15.7 % (11.6-14.8); White Blood Cell Count 5.7 X10^3/uL (4.5-11.0)
[2022-09-29 11:43] LABS: Creatinine Urine Random 78.9 mg/dL
[2022-09-29 11:43] LABS: Alanine Aminotransferase 19 IU/L (<35); Albumin 4.1 g/dL (3.5-5.0); Albumin Globulin Ratio 1.5 (1.0-2.8); Alkaline Phosphatase 53 U/L (38-126); Aspartate Aminotransferase 25 IU/L (14-36); BUN Creatinine Ratio 27.4 (6-22); Blood Urea Nitrogen 17 mg/dL (7-17); Calcium 9.9 mg/dL (8.4-10.2); Carbon Dioxide 27 mmol/L (22-32); Chloride 101 mmol/L (98-107); Estimated Glomerular Filt Rate > 60 mL/min (>60); Globulin 2.8 g/dL (1.7-4.1); Glucose 88 mg/dL (80-110); HEMOLYSIS < 15 (0-50); Potassium 4.1 mmol/L (3.4-5.1); Sodium 139 mmol/L (137-145); Total Protein 6.9 g/dL (6.3-8.2)
[2022-09-29 11:47] LABS: Microalbumi Creatinin Ratio Ur 26.6 ug/mg CR (<30); Microalbumin Urine Random 2.1 mg/dL (0-1.6)
[2022-09-29 12:13] LABS: TSH w/ Reflex to FT4 0.75 uIU/mL (0.47-4.68)
[2022-09-30 06:08] LABS: Labcorp Hemoglobin (Hb) A1c 6.6 % (4.8-5.6)
== END ==
PROVIDERS: Family Provider Internal Medicine; PCP Internal Medicine; Referring Provider Internal Medicine; Visit Provider Internal Medicine
DX: E03.9 Hypothyroidism, unspecified (principal); E78.2 Mixed hyperlipidemia; E78.5 Hyperlipidemia, unspecified; I10 Essential (primary) hypertension; E11.69 Type 2 diabetes mellitus with other specified complication
CPT/HCPCS: 36415; 80053; 82043; 82570; 83036; 84443; 85027

== ENCOUNTER → 2022-10-12 11:56 | Outpatient (CLI) | payer OTHER, SELFPAY ==
--- NOTE | 2022-10-12 12:12 | DI.DEXA.S_ITS ---
Bone Density Report Name: NEHAL BAER Age: 77 Sex: Female Ethnicity: White Date of : 1945 Indication: postmenopausal; screening for osteoporosis; Referring Provider: RASHEEDA MOHAN Study: Bone densitometry was performed. Exam Date: October 12, 2022 Accession number: [id number] Bone Density: Region BMD T-score Z-score Classification AP Spine(L1-L4) 1.092 0.4 2.9 Normal Femoral Neck (Left) 0.673 -1.6 0.6 Osteopenia Total Hip (Left) 0.761 -1.5 0.4 Osteopenia Femoral Neck (Right) 0.623 -2.0 0.2 Osteopenia Total Hip (Right) 0.770 -1.4 0.5 Osteopenia Total Hip Mean 0.765 -1.5 0.5 Osteopenia World Health Organization criteria for BMD impression classify patients as: Normal (T-score at or above -1.0), Osteopenia (T-score between -1.0 and -2.5), or Osteoporosis (T-score at or below -2.5). 10-year Fracture Risk(1): Major Osteoporotic Fracture 13% Hip Fracture 3.8% Reported Risk Factors: [place] (), Neck BMD=0.623, BMI=21.3 (1) FRAX(R) Version 3.08. Fracture probability calculated for an untreated patient. Fracture probability may be lower if the patient has received treatment. Previous Exams: -- Region Exam Age BMD T-score BMD Change BMD Change Date g/cm2 vs Baseline vs Previous -- AP Spine (L1-L4) 10/12/2022 77 1.092 0.4 -0.012 (-1.1%)# -0.012 (-1.1%)# 11/21/2018 73 1.104 0.5 Total Hip(Left) 10/12/2022 77 0.761 -1.5 -0.081 (-9.6%)# -0.081 (-9.6%)# 11/21/2018 73 0.842 -0.8 Total Hip(Right) 10/12/2022 77 0.770 -1.4 -0.057 (-6.9%)# -0.057 (-6.9%)# 11/21/2018 73 0.827 -0.9 -- *Denotes significance at 95% confidence level, LSC for AP Spine = 0.022 g/cm2, LSC for Total Hip = 0.027 g/cm2 # Denotes dissimilar scan types or analysis methods Impression: The patient has low bone mass, based on the Right Femoral Neck T-score. The patient has an estimated ten-year risk of hip fracture of 3.8% and an estimated ten-year risk of major fracture of 13%, based on the WHO FRAX algorithm. No significant bone loss was observed. Discussion: BONE DENSITY IS LOW AT ONE OR MORE SKELETAL SITES. THE PATIENT'S BMD AND CLINICAL RISK FACTORS CONTRIBUTE TO THIS PATIENT'S INCREASED RISK OF FRACTURE. This patient's lowest T-score is low at one or more skeletal sites. It meets the World Health Organization's (WHO) criteria for ?low bone mass? (T-score between -1.0 and -2.5). The patient's 10-year risk of hip fracture as calculated by FRAX exceeds the threshold where pharmacological therapy is recommended by the National Osteoporosis Foundation (NOF). However, all treatment decisions require clinical judgment and consideration of individual patient factors, including patient preferences, comorbidities, previous drug use, risk factors not captured in the FRAX model (e.g., frailty, falls, vitamin D deficiency, increased bone turnover, interval significant decline in bone density) and possible under or overestimation of fracture risk by FRAX. The patient should follow a healthful lifestyle (good nutrition with adequate calcium and vitamin D, and appropriate weight-bearing exercise). Follow-Up: Consider a repeat BMD and Vertebral Fracture Assessment (VFA) exam in 2 years or sooner if medically necessary, to reassess this patient's status. Reported by: PAULA MONTANA MD on 10/12/2022 12:22:00 PM.
== END ==
PROVIDERS: Family Provider Internal Medicine; PCP Internal Medicine; Referring Provider Internal Medicine; Visit Provider Internal Medicine
DX: Z78.0 Asymptomatic menopausal state (principal); Z13.820 Encounter for screening for osteoporosis; M85.851 Other specified disorders of bone density and structure, right thigh
CPT/HCPCS: 77080

== ENCOUNTER → 2022-11-30 12:56 | Outpatient (CLI) | payer OTHER, SELFPAY ==
--- NOTE | 2022-11-30 | DI.MG.S_ITS ---
BILATERAL DIGITAL SCREENING MAMMOGRAM 3D/2D WITH CAD: 11/30/2022 CLINICAL: Routine screening. Family history of breast cancer. Comparison is made to exams dated: 11/28/2021 mammogram, 11/23/2020 mammogram, 11/17/2019 mammogram, and 05/18/2018 mammogram - [facility]. There are scattered areas of fibroglandular density in both breasts (category b / 25%-50% glandular tissue). Current study was also evaluated with a Computer Aided Detection (CAD) system. There are benign calcifications in the right breast. There also are benign vascular calcifications in both breasts. Additionally, there are benign post operative findings in the right breast. No significant masses, calcifications, or other findings are seen in either breast. There has been no significant interval change. IMPRESSION: BENIGN There is no mammographic evidence of malignancy. A 1 year screening mammogram is recommended. Based on the Tyrer Cuzick model (a risk assessment model) the patient's lifetime risk is 8.3% and her 10 year risk is 0.0%. According to the ACR, ACS, and NCCN guidelines, an annual breast MRI exam along with mammogram is recommended if the patient's lifetime risk is 20% or greater. This exam was interpreted at Station ID: [id number]. NOTE: For mammograms, a report in lay terms will be sent to the patient. Approximately 15% of breast malignancies will not be visualized mammographically. In the management of a palpable breast mass, a negative mammogram must not discourage biopsy of a clinically suspicious lesion. Electronically Signed By: Kenney lisa/ton:11/30/2022 15:00:09 letter sent: Normal Exam ACR BI-RADS Category 2: Benign Finding(s) 3342F
== END ==
PROVIDERS: Family Provider Internal Medicine; PCP Internal Medicine; Referring Provider Internal Medicine; Visit Provider Internal Medicine
DX: Z12.31 Encounter for screening mammogram for malignant neoplasm of breast (principal); Z80.3 Family history of malignant neoplasm of breast
CPT/HCPCS: 77063; 77067

== ENCOUNTER → 2022-12-29 11:15 | Outpatient (CLI) | payer OTHER, SELFPAY ==
[2022-12-29 12:25] LABS: Hematocrit 33.5 % (36-46); Hemoglobin 11.3 g/dL (12.0-16.0); Mean Corpuscular HGB Conc 33.6 % (30-36); Mean Corpuscular Hemoglobin 27.2 PG (26-34); Mean Corpuscular Volume 81.1 fL (80-100); Platelet Count 278 X10^3/uL (150-400); Red Blood Cell Count 4.13 X10^6/uL (4.0-5.2); Red Cell Distribution Width 14.9 % (11.6-14.8); White Blood Cell Count 6.4 X10^3/uL (4.5-11.0)
[2022-12-29 12:39] LABS: Blood Urea Nitrogen 22 mg/dL (7-17); Calcium 9.6 mg/dL (8.4-10.2); Carbon Dioxide 28 mmol/L (22-32); Chloride 100 mmol/L (98-107); Estimated Glomerular Filt Rate > 60 mL/min (>60); Glucose 95 mg/dL (80-110); HEMOLYSIS < 15 (0-50); Potassium 3.9 mmol/L (3.4-5.1); Sodium 136 mmol/L (137-145)
[2022-12-30 09:30] LABS: Labcorp Hemoglobin (Hb) A1c 6.5 % (4.8-5.6)
== END ==
PROVIDERS: Family Provider Internal Medicine; PCP Internal Medicine; Referring Provider Internal Medicine; Visit Provider Internal Medicine
DX: E11.69 Type 2 diabetes mellitus with other specified complication (principal); E78.2 Mixed hyperlipidemia; E78.5 Hyperlipidemia, unspecified; I10 Essential (primary) hypertension
CPT/HCPCS: 36415; 80048; 83036; 85027

== ENCOUNTER 2023-01-09 07:30 | Day surgery (SDC) | payer OTHER, SELFPAY ==
[2023-01-09 07:43] VITALS: BMI 21.2
[2023-01-09 07:48] VITALS: BP 134/77; PULSE 91; RESP 16; TEMP 36.3; O2SAT 100
[2023-01-09] MEDS: LACTATED RINGERS 1,000 ML 42 ML IV (07:55)
--- NOTE | 2023-01-09 08:33 | P.HP_ITS ---
History of Present Illness History of Present Illness Date Patient Seen: 01/09/23 Time Patient Seen: 08:33 Chief complaint: SDC Narrative: 77-year-old woman personal history of colonic polyps here for screening colonoscopy. No abdominal pain nausea vomiting unintentional weight loss blood per rectum. No family history of colon cancer. [facility] Medical History Acquired hypothyroidism Alopecia Branch retinal vein occlusion Chronic low back pain DM type 2 with diabetic dyslipidemia Essential hypertension GERD (gastroesophageal reflux disease) GERD without esophagitis Gout History of colonic polyps Kyphosis Mixed hyperlipidemia Osteopenia Primary osteoarthritis involving multiple joints Retinal vein occlusion Rosacea Surgical History Status post breast reduction Family History Father History of heart disease Stroke Parkinson's disease Mother Breast cancer Hypertension Stroke Parkinson's disease [place] Brother Diabetes mellitus Hypertension Sister Breast cancer History of heart disease Social History household members: spouse Smoking Status: Never smoker alcohol intake: current Meds Home Medications and Allergies Home Medications Medication Instructions Recorded Confirmed Type empagliflozin 10 mg tablet 10 mg PO DAILY #90 tabs 08/21/22 01/09/23 Rx (Jardiance) amlodipine 2.5 mg tablet 2.5 mg PO DAILY 09/29/22 01/09/23 History aspirin 81 mg capsule 81 mg PO DAILY 09/29/22 01/09/23 History atorvastatin 40 mg tablet 40 mg PO DAILY 09/29/22 01/09/23 History blood-glucose meter (Accu-Chek #1 ea 09/29/22 12/29/22 Rx Guide Glucose Meter) cholecalciferol (vitamin D3) 25 2,000 unit PO DAILY 09/29/22 01/09/23 History mcg (1,000 unit) capsule estradiol 0.01% (0.1 mg/gram) 1 g vaginal 2XW PRN urgency 09/29/22 01/09/23 History vaginal cream levothyroxine 75 mcg tablet 75 mcg PO DAILY 09/29/22 01/09/23 History loratadine 10 mg tablet 10 mg PO DAILY 09/29/22 01/09/23 History magnesium 200 mg tablet 200 mg PO DAILY 09/29/22 01/09/23 History metformin 500 mg tablet,extended 1,000 mg PO BID 09/29/22 01/09/23 History release 24 hr omega 7-pnx-fgz-fish oil 1,000 mg 1 cap PO DAILY 09/29/22 01/09/23 History (120 mg-180 mg) capsule (Fish Oil) blood sugar diagnostic (Accu-Chek #100 ea 10/13/22 12/29/22 Rx Guide test strips) lancets (Accu-Chek Softclix #100 ea 10/13/22 12/29/22 Rx Lancets) Allergies Allergy/AdvReac Type Severity Reaction Status Date / Time No Known Drug Allergies Allergy Verified 01/09/23 07:41 Exam Vital Signs (past 8 hours): - 01/09/23 07:48 Temperature 97.4 F L Pulse Rate 91 H Respiratory Rate 16 Blood Pressure 134/77 Pulse Oximetry 100 Oxygen Delivery Method Room Air Oxygen Delivery Method Room Air Narrative Exam Narrative: General adult woman alert oriented no acute distress Abdomen soft nontender nondistended Assessment & Plan Assessment and plan (1) History of colonic polyps: Status: Acute Assessment & Plan narrative: The patient requires colorectal screening and colonoscopy is recommended. Technical details were discussed. Risks, benefits, alternatives explained. Risks including but not limited to myocardial infarction, aspiration, bleeding, pain, missed lesion, incomplete examination, need for further radiographic studies, colonic perforation, and need for major abdominal surgery were discussed. All questions were answered to their satisfaction, and they are in agreement with this plan.
[2023-01-09 09:06] VITALS: BP 81/45; PULSE 79; RESP 16; TEMP 36.4; O2SAT 96
[2023-01-09 09:11] VITALS: BP 82/47; PULSE 80; RESP 16; O2SAT 94
[2023-01-09 09:16] VITALS: BP 96/48; PULSE 87; RESP 18; TEMP 36.5; O2SAT 98
--- NOTE | 2023-01-09 09:20 | PM.OP.COLON ---
Operative Date/Time/Diagnoses Date of procedure: 01/09/23 Time of procedure: 09:20 Pre-op diagnosis: Personal history of colonic polyps Post-op diagnosis: same Procedure & Clinicians Study performed: Colonoscopy Same procedure as scheduled: Yes Indications: Personal history of colonic polyps Surgeon: Tim Owens Procedure Notes Procedure in detail: The history and physical was performed/updated and the patient is ASA class is 2. The procedure was discussed in detail with the patient. Potential risks complications including infection, bleeding, missed diagnosis, perforation, need for surgery, and were explained. Their questions were answered and informed consent was obtained. Patient was brought to the procedure room and placed standard monitoring equipment. The patient's vital signs were monitored continuously throughout the entire procedure. Prior to starting time-out was performed. The patient was placed in the left lateral recumbent position. Procedural sedation was administered by anesthesia. Examination began with a thorough inspection of the perianal area there was no evidence of fissures, fistulae, external hemorrhoids or cutaneous malignancy. The colonoscopy scope was then placed into the anal canal and was advanced to the cecum, which was identified by the ileocecal valve, the appendiceal orifice and the confluence of the taenia. The scope was then slowly withdrawn examining colon thoroughly in all directions, irrigating it of any residual stool. No masses or polyps. Normal healthy colon. Grade 1 internal hemorrhoids. The patient tolerated the procedure well. They will be discharged once criteria are met. The prep was of good/excellent quality. The withdrawl time was 7 minutes. Specimen(s): none sent Impression: Normal colonoscopy Post-procedure Plan for aftercare: No further colonoscopy unnecessary unless symptomatic Disposition: same day surgery
[2023-01-09 09:23] VITALS: BP 100/54; PULSE 79; RESP 16; TEMP 36.5; O2SAT 98
== END 2023-01-09 09:37 | disposition home or self-care (01) ==
PROVIDERS: Family Provider Internal Medicine; PCP Internal Medicine; Referring Provider Surgery; Visit Provider Surgery
PROC: 0DJD8ZZ Inspection of Lower Intestinal Tract, Via Natural or Artificial Opening Endoscopic (ICD-10-PCS; CPT 45378; principal; 2023-01-09 08:30)
DX: Z12.11 Encounter for screening for malignant neoplasm of colon (principal); Z86.010 Personal history of colon polyps; K64.0 First degree hemorrhoids
CPT/HCPCS: G0105; 82962

== ENCOUNTER 2023-05-03 16:47 | Emergency (ER) | payer OTHER, SELFPAY ==
[2023-05-03 16:59] VITALS: BP 172/79; PULSE 82; RESP 20; TEMP 36; O2SAT 99; BMI 21.6
--- NOTE | 2023-05-03 17:24 | DI.CT.S_ITS ---
PROCEDURE: CT HEAD/BRAIN WO CON INDICATIONS: fall with head injury TECHNIQUE: Noncontrast 4.5 mm thick angled axial sections acquired from the foramen magnum to the vertex, with coronal and sagittal reformats. For radiation dose reduction, the following was used: automated exposure control, adjustment of mA and/or kV according to patient size. COMPARISON: None. FINDINGS: Image quality: Excellent. CSF spaces: Basal cisterns are patent. No extra-axial fluid collections. The ventricles are symmetric in size and shape. Brain: No intracranial bleeds or masses. There is cerebral volume loss for age, with resultant ventricular and sulcal prominence. There are periventricular and deep white matter chronic small vessel ischemic changes. There is intracranial internal carotid artery atherosclerosis. Skull and face: Calvarium and visualized facial bones appear intact, without suspicious lesions. Sinuses: Visualized sinuses and mastoids are clear. IMPRESSION: 1. No acute intracranial abnormalities. 2. Age related volume loss and mild white matter chronic small vessel ischemic changes. Dictated by: Lux An M.D. on 05/03/2023 at 17:56 Approved by: Lux An M.D. on 05/03/2023 at 17:56
--- NOTE | 2023-05-03 17:24 | DI.CT.S_ITS ---
PROCEDURE: CT CERVICAL SPINE WO CON INDICATIONS: fall with head injury TECHNIQUE: Noncontrast 3 mm thick sections acquired from the skull base to the T4 level. Sagittal and coronal reformats were then constructed. For radiation dose reduction, the following was used: automated exposure control, adjustment of mA and/or kV according to patient size. COMPARISON: None. FINDINGS: Image quality: Excellent. Bones: No fractures or dislocations. Loss of disc height, degenerative endplate changes and dorsal disc osteophyte complex formation throughout cervical spine is seen. Bilateral facet hypertrophic changes also noted throughout cervical spine. There is [id number] central canal stenosis and bilateral neural foraminal narrowing more notably at C5-6 level. Visualized superior ribs are intact. Soft tissues: Prevertebral soft tissues are normal in thickness. No paravertebral hematomas. No apical pneumothoraces. IMPRESSION: 1. No acute cervical spine fracture or dislocation. 2. Degenerative disc disease throughout cervical spine as above. Dictated by: Lux An M.D. on 05/03/2023 at 17:54 Approved by: Lux An M.D. on 05/03/2023 at 17:55
--- NOTE | 2023-05-03 18:02 | ED.HEATRA ---
HPI - Head Injury General Chief complaint: Head Injury Stated complaint: fall, head injury Time Seen by Provider: 05/03/23 17:24 Source: patient Mode of arrival: Ambulatory History of Present Illness HPI Narrative: Patient comes to the ED tonight after a ground level fall. She was on some stairs reaching to draft roller picker some books and took a step forward thinking she was on the floor but she was in fact 1 stare off the floor. She fell backwards and struck her head against the molding on the floor junction with the wall. She saw stars but did not lose consciousness. She has soreness in her right wrist and pain in the back of her head but no other significant pain other than mild diffuse soreness in her neck. She denies syncope or loss of consciousness. She seems convinced that this was simply a misstep. She was attended to by others who were at her side at the time of the fall and no specific injuries were suspected by bystanders. She had obvious bleeding in the back of her head and came to the hospital to have that attended to. She takes no blood thinners. Related Data Home Medications Medication Instructions Recorded Confirmed aspirin 81 mg capsule 81 mg PO DAILY 09/29/22 01/09/23 atorvastatin 40 mg tablet 40 mg PO DAILY 09/29/22 01/09/23 cholecalciferol (vitamin D3) 25 2,000 unit PO DAILY 09/29/22 01/09/23 mcg (1,000 unit) capsule estradiol 0.01% (0.1 mg/gram) 1 g vaginal 2XW PRN urgency 09/29/22 01/09/23 vaginal cream levothyroxine 75 mcg tablet 75 mcg PO DAILY 09/29/22 01/09/23 loratadine 10 mg tablet 10 mg PO DAILY 09/29/22 01/09/23 magnesium 200 mg tablet 200 mg PO DAILY 09/29/22 01/09/23 metformin 500 mg tablet,extended 1,000 mg PO BID 09/29/22 01/09/23 release 24 hr omega 6-ynx-sgp-fish oil 1,000 mg 1 cap PO DAILY 09/29/22 01/09/23 (120 mg-180 mg) capsule (Fish Oil) Previous Rx's Medication Instructions Recorded blood-glucose meter (Accu-Chek #1 ea 09/29/22 Guide Glucose Meter) blood sugar diagnostic (Accu-Chek #100 ea 10/13/22 Guide test strips) lancets (Accu-Chek Softclix #100 ea 10/13/22 Lancets) amlodipine 2.5 mg tablet 2.5 mg PO DAILY #90 tabs 01/24/23 empagliflozin 10 mg tablet 10 mg PO DAILY #90 tabs 03/01/23 (Jardiance) Allergies Allergy/AdvReac Type Severity Reaction Status Date / Time No Known Drug Allergies Allergy Verified 01/09/23 07:41 Patient History Medical History Acquired hypothyroidism Alopecia Branch retinal vein occlusion Chronic low back pain DM type 2 with diabetic dyslipidemia Essential hypertension GERD (gastroesophageal reflux disease) GERD without esophagitis Gout History of colonic polyps Kyphosis Mixed hyperlipidemia Osteopenia Primary osteoarthritis involving multiple joints Retinal vein occlusion Rosacea Surgical History Status post breast reduction Family History Father History of heart disease Stroke Parkinson's disease Mother Breast cancer Hypertension Stroke Parkinson's disease [place] Brother Diabetes mellitus Hypertension Sister Breast cancer History of heart disease Social History household members: spouse Smoking Status: Never smoker alcohol intake: current Smoking Status: Never smoker alcohol intake frequency: holidays/special occasions only Substance Use Type: does not use Exam Narrative Exam Narrative: GENERAL: Alert, cooperative and in no distress. HEAD: She has obvious contusion, subgaleal hematoma and laceration to the posterior aspect of her scalp.. Normocephalic. EYES: Sclera are clear without icterus. Extraocular movements are full. ENT: No rhinorrhea. Oropharynx is moist. Mouth exam is benign. NECK: Supple. Full range of motion. CARDIOVASCULAR: Normal rate and rhythm without murmur gallop or rub. RESPIRATORY: Clear to auscultation. Breath sounds equal bilaterally. No wheezes, rales, or rhonchi. GASTROINTESTINAL: Abdomen soft, non-tender, nondistended. EXTREMITIES: No edema, full range of motion. No obvious trauma. Full range of motion of the neck and spine without pain to palpation of the spinous processes from the base of the skull down to the sacrum. No tenderness to full range of motion of upper and lower extremities including the right wrist where she has a small ecchymosis at the right radial head. There is no bony tenderness at all including no anatomic snuffbox tenderness. Full range of motion without pain. BACK: Normal inspection, no CVA tenderness. NEURO: Nonfocal examination, normal speech, normal gait. SKIN: No rash or erythema of visible areas PSYCH: Normally oriented. Normal range of affect. Appropriate behavior Initial Vital Signs Initial Vital Signs: Vital Signs Temperature 96.8 F L 05/03/23 16:59 Pulse Rate 82 05/03/23 16:59 Respiratory Rate 20 05/03/23 16:59 Blood Pressure 172/79 H 05/03/23 16:59 Pulse Oximetry 99 05/03/23 16:59 Oxygen Delivery Method Room Air 05/03/23 16:59 Procedures Laceration Repair Laceration 1: Time of procedure: 18:45 Site: scalp Side (If applicable): right Size (cm): 5 Description: linear Depth: simple, single layer Local Anesthetic: lidocaine 1% and with epi Amount of anesthesia used (mL): 5 Pre-repair: wound explored and cleansed with chlorhexadine (Cleansed with Betadine) Skin layer closed with: fareed Number of sutures: 6 Technique: simple, interrupted Number of sutures: 6 Course Orders Ordered: ED Orders 05/03/23 17:24 CT cervical spine wo con Stat CT head/brain wo con Stat Discontinued Medications Acetaminophen (Acetaminophen 325 Mg Tablet) 975 mg PO NOW ONE Stop: 05/03/23 18:44 Ibuprofen (Ibuprofen 400 Mg Tablet) 800 mg PO NOW ONE Stop: 05/03/23 18:44 Vital Signs Vital signs: Vital Signs - 8 hr 05/03/23 16:59 Temperature 96.8 F L Pulse Rate 82 Respiratory Rate 20 Blood Pressure 172/79 H Pulse Oximetry 99 Oxygen Delivery Method Room Air MDM - Head Injury Imaging Data CT scan - head: Radiologist's Impression: PROCEDURE: CT HEAD/BRAIN WO CON INDICATIONS: fall with head injury TECHNIQUE: Noncontrast 4.5 mm thick angled axial sections acquired from the foramen magnum to the vertex, with coronal and sagittal reformats. For radiation dose reduction, the following was used: automated exposure control, adjustment of mA and/or kV according to patient size. COMPARISON: None. FINDINGS: Image quality: Excellent. CSF spaces: Basal cisterns are patent. No extra-axial fluid collections. The ventricles are symmetric in size and shape. Brain: No intracranial bleeds or masses. There is cerebral volume loss for age, with resultant ventricular and sulcal prominence. There are periventricular and deep white matter chronic small vessel ischemic changes. There is intracranial internal carotid artery atherosclerosis. Skull and face: Calvarium and visualized facial bones appear intact, without suspicious lesions. Sinuses: Visualized sinuses and mastoids are clear. IMPRESSION: 1. No acute intracranial abnormalities. 2. Age related volume loss and mild white matter chronic small vessel ischemic changes. Dictated by: Lux An M.D. on 05/03/2023 at 17:56 Approved by: Lux An M.D. on 05/03/2023 at 17:56 CT - cervical spine: Radiologist's Impression: IMPRESSION: 1. No acute cervical spine fracture or dislocation. 2. Degenerative disc disease throughout cervical spine as above. Dictated by: Lux An M.D. on 05/03/2023 at 17:54 Approved by: Lux An M.D. on 05/03/2023 at 17:55 Discharge Plan Departure Patient Disposition: Home Clinical Impression: Closed head injury, Laceration of scalp Instructions: DI for Laceration Repair -- [place], DI for Closed Head Injury Activity Restrictions/Additional Instructions: Thank you for trusting us with your care tonight. Fortunately, I do not suspect a dangerous intracranial injury especially in light of the fact that the CT scan was entirely reassuring. Did have a 5 cm laceration on the back of your head which I have repaired with fareed. The fareed should be removed in 7-10 days. It is okay to wash her hair daily. Pat the area dry and apply antibiotic ointment daily. Follow-up right away for uncontrolled bleeding, severe headache, fainting or other severe symptoms, otherwise it is safe to take ibuprofen and Tylenol for your headache. You should also follow up right away if you think the wound is becoming infected. Prescriptions: No Action (DME) lancets [Accu-Chek Softclix Lancets] Misc See Rx Instructions .Route Qty: 100 3RF Rx Instructions: As directed to use for glucose testing. (DME) Accu-Chek Guide test strips Strip See Rx Instructions .Route Qty: 100 3RF Rx Instructions: As directed to use for glucose testing. amlodipine 2.5 mg tablet 2.5 mg PO DAILY Qty: 90 3RF Jardiance 10 mg tablet 10 mg PO DAILY Qty: 90 1RF levothyroxine 75 mcg tablet 75 mcg PO DAILY atorvastatin 40 mg tablet 40 mg PO DAILY aspirin 81 mg capsule 81 mg PO DAILY loratadine 10 mg tablet 10 mg PO DAILY omega 4-xug-pxh-fish oil [Fish Oil] 1,000 mg (120 mg-180 mg) capsule 1 cap PO DAILY magnesium 200 mg tablet 200 mg PO DAILY cholecalciferol (vitamin D3) 25 mcg (1,000 unit) capsule 2,000 unit PO DAILY estradiol 0.01 % (0.1 mg/gram) cream 1 g vaginal 2XW PRN (Reason: urgency) metformin 500 mg tablet extended release 24 hr 1,000 mg PO BID (DME) blood-glucose meter [Accu-Chek Guide Glucose Meter] Misc See Rx Instructions .Route Qty: 1 0RF Rx Instructions: As directed Referrals: Vahid Harris MD [Primary Care Provider] - Stand Alone Forms: Patient Portal/API
[2023-05-03] MEDS: IBUPROFEN 400 MG TABLET 800 MG PO (18:58)
[2023-05-03] MEDS: ACETAMINOPHEN 325 MG TABLET 975 MG PO (18:58)
[2023-05-03 19:05] VITALS: BP 144/68; PULSE 85; RESP 12; O2SAT 98
== END 2023-05-03 19:08 | disposition home or self-care (01) ==
PROVIDERS: Emergency Provider Family Medicine Addiction Medicine; Family Provider Internal Medicine; PCP Internal Medicine
DX: S01.01XA Laceration without foreign body of scalp, initial encounter (principal); S09.8XXA Other specified injuries of head, initial encounter; W10.9XXA Fall (on) (from) unspecified stairs and steps, initial encounter
CPT/HCPCS: 12002; 70450; 72125; 99283

== ENCOUNTER → 2023-06-14 14:10 | Outpatient (CLI) | payer OTHER, SELFPAY ==
--- NOTE | 2023-06-14 14:12 | DI.RAD.S_ITS ---
PROCEDURE: XR HAND RT MIN 3V INDICATIONS: R hand pain/swelling TECHNIQUE: Three views of the hand acquired. COMPARISON: None. FINDINGS: Bones: No acute fractures or dislocations. Carpal bones are normally aligned. No suspicious bony lesions. Generalized osteopenia. Multifocal degenerative changes are seen at the 1st carpometacarpal joint and throughout the interphalangeal joints of the fingers. Soft tissues: Soft tissue calcifications are seen at the ulnar aspect of the wrist overlying. IMPRESSION: 1. Moderate osteoarthrosis. 2. Nonspecific soft tissue calcifications at the ulnar aspect of the wrist adjacent to the ulnar styloid. Consider MRI or CT for further evaluation if indicated clinically. 3. Generalized osteopenia. No acute osseous abnormality. on 06/14/2023 at 20:31 Approved by: Andrea Patterson M.D. on 06/14/2023 at 20:31
== END ==
PROVIDERS: Family Provider Internal Medicine; PCP Internal Medicine; Referring Provider Internal Medicine; Visit Provider Internal Medicine
DX: M19.041 Primary osteoarthritis, right hand (principal); M85.841 Other specified disorders of bone density and structure, right hand; M79.641 Pain in right hand
CPT/HCPCS: 73130

== ENCOUNTER → 2023-06-29 07:47 | Outpatient (CLI) | payer OTHER, SELFPAY ==
[2023-06-29 08:54] LABS: Hemoglobin A1C% w Est Avg Glu 6.4 % (4.0-6.0)
[2023-06-29 09:03] LABS: Aspartate Aminotransferase 28 IU/L (14-36); BUN Creatinine Ratio 31.1 (6-22); Blood Urea Nitrogen 19 mg/dL (7-17); Calcium 9.9 mg/dL (8.4-10.2); Carbon Dioxide 27 mmol/L (22-32); Chloride 100 mmol/L (98-107); Cholesterol 162 mg/dL (140-199); Estimated Glomerular Filt Rate > 60 mL/min (>60); Glucose 113 mg/dL (80-110); HDL Cholesterol 77 mg/dL (40-60); HEMOLYSIS < 15 (0-50); LDL Cholesterol Calculated 71 mg/dL (<100); Potassium 3.9 mmol/L (3.4-5.1); Sodium 136 mmol/L (137-145); Triglycerides 72 mg/dL (35-150)
[2023-06-29 09:43] LABS: TSH w/ Reflex to FT4 6.24 uIU/mL (0.47-4.68)
[2023-06-29 10:08] LABS: Free T4, Direct Thyroxine 1.51 ng/dL (0.78-2.19)
== END ==
LOC: LAB 07:47
PROVIDERS: Family Provider Internal Medicine; PCP Internal Medicine; Referring Provider Internal Medicine; Visit Provider Internal Medicine
DX: E11.69 Type 2 diabetes mellitus with other specified complication (principal); E78.5 Hyperlipidemia, unspecified; E03.9 Hypothyroidism, unspecified; E78.2 Mixed hyperlipidemia
CPT/HCPCS: 36415; 80048; 80061; 83036; 84439; 84443; 84450

== ENCOUNTER → 2023-10-09 10:25 | Outpatient (CLI) | payer OTHER, SELFPAY ==
[2023-10-09 11:19] LABS: Blood Urea Nitrogen 16 mg/dL (7-17); Calcium 10.3 mg/dL (8.4-10.2); Carbon Dioxide 28 mmol/L (22-32); Chloride 105 mmol/L (98-107); Estimated Glomerular Filt Rate > 60 mL/min (>60); Glucose 109 mg/dL (80-110); HEMOLYSIS < 15 (0-50); Hemoglobin A1C% w Est Avg Glu 7.1 % (4.0-6.0); Sodium 140 mmol/L (137-145)
[2023-10-09 11:48] LABS: TSH w/ Reflex to FT4 0.72 uIU/mL (0.47-4.68)
[2023-10-09 12:01] LABS: Microalbumi Creatinin Ratio Ur 17.5 ug/mg CR (<30)
== END ==
PROVIDERS: Family Provider Internal Medicine; PCP Internal Medicine; Referring Provider Internal Medicine; Visit Provider Internal Medicine
DX: E11.69 Type 2 diabetes mellitus with other specified complication (principal); E78.5 Hyperlipidemia, unspecified; E03.9 Hypothyroidism, unspecified; I10 Essential (primary) hypertension
CPT/HCPCS: 36415; 80048; 82043; 82570; 83036; 84443

== ENCOUNTER → 2024-01-10 11:59 | Outpatient (CLI) | payer OTHER, SELFPAY ==
[2024-01-10 13:20] LABS: BUN Creatinine Ratio 30.8 (6-22); Blood Urea Nitrogen 20 mg/dL (7-17); Calcium 9.6 mg/dL (8.4-10.2); Carbon Dioxide 24 mmol/L (22-32); Chloride 102 mmol/L (98-107); Estimated Glomerular Filt Rate > 60 mL/min (>60); Glucose 99 mg/dL (80-110); HEMOLYSIS < 15 (0-50); Potassium 3.9 mmol/L (3.4-5.1); Sodium 136 mmol/L (137-145)
[2024-01-10 13:44] LABS: Hemoglobin A1C% w Est Avg Glu 6.5 % (4.0-6.0)
== END ==
PROVIDERS: Family Provider Internal Medicine; PCP Internal Medicine; Referring Provider Internal Medicine; Visit Provider Internal Medicine
DX: E11.69 Type 2 diabetes mellitus with other specified complication (principal); E78.5 Hyperlipidemia, unspecified
CPT/HCPCS: 36415; 80048; 83036

== ENCOUNTER → 2024-02-14 09:10 | Outpatient (CLI) | payer OTHER, SELFPAY ==
--- NOTE | 2024-02-14 09:11 | DI.MG.S_ITS ---
BILATERAL DIGITAL SCREENING MAMMOGRAM 3D/2D WITH CAD: 02/14/2024 CLINICAL: Routine screening. Family history of breast cancer. Comparison is made to exams dated: 11/30/2022 mammogram, 11/28/2021 mammogram, and 11/23/2020 mammogram - [facility]. There are scattered areas of fibroglandular density in both breasts (category b / 25%-50% glandular tissue). Current study was also evaluated with a Computer Aided Detection (CAD) system. There are benign calcifications in the right breast. There also are benign vascular calcifications in both breasts. Additionally, there are benign post operative findings in the right breast. No significant masses, calcifications, or other findings are seen in either breast. There has been no significant interval change. IMPRESSION: BENIGN There is no mammographic evidence of malignancy. A 1 year screening mammogram is recommended. Based on the Tyrer Cuzick model (a risk assessment model) the patient's lifetime risk is 7.4% and her 10 year risk is 0.0%. According to the ACR, ACS, and NCCN guidelines, an annual breast MRI exam along with mammogram is recommended if the patient's lifetime risk is 20% or greater. This exam was interpreted at Station ID: [id number]. NOTE: For mammograms, a report in lay terms will be sent to the patient. Approximately 15% of breast malignancies will not be visualized mammographically. In the management of a palpable breast mass, a negative mammogram must not discourage biopsy of a clinically suspicious lesion. Electronically Signed By: Kenney lisa/ton:02/14/2024 12:14:41 letter sent: Normal Exam ACR BI-RADS Category 2: Benign Finding(s) 3342F
== END ==
PROVIDERS: Family Provider Internal Medicine; PCP Internal Medicine; Referring Provider Internal Medicine; Visit Provider Internal Medicine
DX: Z12.31 Encounter for screening mammogram for malignant neoplasm of breast (principal); R92.1 Mammographic calcification found on diagnostic imaging of breast; R92.323 Mammographic fibroglandular density, bilateral breasts; Z80.3 Family history of malignant neoplasm of breast
CPT/HCPCS: 77063; 77067